=== PATIENT | female | born 2000 | race Caucasian/White ===

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

== ENCOUNTER 2018-04-11 11:10 | Emergency (ER) | payer OTHER ==
[2018-04-11 11:17] VITALS: TEMP 98.1
[2018-04-11 12:32] LABS: Amphetamine Screen,Urine Not Detected (NotDetected); Barbiturate Screen,Urine Not Detected (NotDetected); Benzodiazepines Screen,Urine Detected (NotDetected); Cocaine Screen,Urine Not Detected (NotDetected); Methadone Screen, Urine Not Detected (NotDetected); Opiate Screen,Urine Not Detected (NotDetected); Oxycodone Screen, Urine Not Detected (NotDetected); Phencyclidine Screen,Urine Not Detected (NotDetected); Tricyclic Antidepressant,Urine Not Detected (NotDetected); Urn Cannabinoid Scrn Detected (NotDetected)
--- NOTE | 2018-04-11 13:28 | ED ---
General Adult HPI - General Chief complaint: Psychiatric Symptoms Stated complaint: SUICIDAL Time Seen by Provider: 04/11/18 11:10 Source: patient, family, RN notes reviewed Mode of arrival: ambulatory Limitations: no limitations - History of Present Illness Initial comments: This is a 17-year-old female presents emergency Department stating that her depression and anxiety are getting the best of her lately. Patient states every day she thinks about how would be not to be around. Patient states she's not actively thinking of suicide but she does often think it would be nice not to be here any longer. Patient states she attempted suicide about 4 years ago but hasn't attempted since and has no current plan to attempt. Patient states she has not taken any medications for her anxiety or depression. Patient denies any physical complaints today. Patient states she does smoke marijuana but does not do any other illegal drugs and she only is a social drinker. Patient states she does not believe she is at this time either. Patient denies any headache patient denies numbness weakness. Patient was chest pain difficulty breathing or shortness of breath. Patient denies any recent fever chills or cough. Patient denies abdominal pain patient denies nausea vomiting diarrhea. - Related Data Home Medications Medication Instructions Recorded Confirmed No Known Home Medications 03/12/17 04/11/18 Allergies Allergy/AdvReac Type Severity Reaction Status Date / Time No Known Allergies Allergy Verified 04/11/18 11:48 Review of Systems ROS Statement: Those systems with pertinent positive or pertinent negative responses have been documented in the HPI. ROS Other: All systems not noted in ROS Statement are negative. Past Medical History Past Medical History: No Reported History Additional Past Medical History / Comment(s): LIVER ENZYMES ELEV. ON PO AB FOR ECOLI IN URINE. CHOLECYSTITIS. History of Any Multi-Drug Resistant Organisms: None Reported Past Surgical History: Adenoidectomy, Cholecystectomy, Tonsillectomy Past Anesthesia/Blood Transfusion Reactions: No Reported Reaction Past Psychological History: Anxiety, Depression Smoking Status: Current every day smoker Past Alcohol Use History: Rare Past Drug Use History: Marijuana - Past Family History Mother Family Medical History: No Reported History Father Family Medical History: Unable to Obtain General Exam - General Exam Comments Initial Comments: GENERAL: Patient is well-developed and well-nourished. Patient is nontoxic and well- hydrated and is in no acute distress. ENT: Neck is soft and supple. No significant lymphadenopathy is noted. Oropharynx is clear. Moist mucous membranes. Neck has full range of motion without eliciting any pain. EYES: The sclera were anicteric and conjunctiva were pink and moist. Extraocular movements were intact and pupils were equal round and reactive to light. Eyelids were unremarkable. PULMONARY: Unlabored respirations. Good breath sounds bilaterally. No audible rales rhonchi or wheezing was noted. CARDIOVASCULAR: There is a regular rate and rhythm without any murmurs gallops or rubs. ABDOMEN: Soft and nontender with normal bowel sounds. No palpable organomegaly was noted. There is no palpable pulsatile mass. SKIN: Skin is clear with no lesions or rashes and otherwise unremarkable. NEUROLOGIC: Patient is alert and oriented x3. Cranial nerves II through XII are grossly intact. Motor and sensory are also intact. Normal speech, volume and content. Symmetrical smile. MUSCULOSKELETAL: Normal extremities with adequate strength and full range of motion. PSYCHIATRIC: Patient appears to be depressed she is talking about how denies it would be not to be any longer however she is not actively suicidal. Limitations: no limitations Course Vital Signs 04/11/18 04/11/18 11:12 14:14 Temperature 98.1 F Pulse Rate 107 H 68 Respiratory 16 18 Rate Blood Pressure 113/66 111/52 O2 Sat by Pulse 100 99 Oximetry Medical Decision Making - Medical Decision Making Mom and the patient are both comfortable with the outpatient follow-up plan - Lab Data Lab Results 04/11/18 Range/Units 12:13 Urine Opiates Screen Not Detected (NotDetected) Ur Oxycodone Screen Not Detected (NotDetected) Urine Methadone Screen Not Detected (NotDetected) Ur Propoxyphene Screen Not Detected (NotDetected) Ur Barbiturates Screen Not Detected (NotDetected) U Tricyclic Antidepress Not Detected (NotDetected) Ur Phencyclidine Scrn Not Detected (NotDetected) Ur Amphetamines Screen Not Detected (NotDetected) U Methamphetamines Scrn Not Detected (NotDetected) U Benzodiazepines Scrn Detected H (NotDetected) Urine Cocaine Screen Not Detected (NotDetected) U Marijuana (THC) Screen Detected H (NotDetected) Disposition Clinical Impression: Depression Disposition: HOME SELF-CARE Condition: Good Instructions: Depression (ED) Additional Instructions: Patient should follow-up per EP assess directions Is patient prescribed a controlled substance at d/c from ED?: No Referrals: Nadja Goldberg MD [Primary Care Provider] - 1-2 days Time of Disposition: 13:28
[2018-04-11 14:15] VITALS: BP 111/52; PULSE 68; RESP 18
== END 2018-04-11 13:59 | disposition home or self-care (01) ==
LOC: EC 11:10
DX: F32.9 Major depressive disorder, single episode, unspecified (principal); F41.9 Anxiety disorder, unspecified; F17.200 Nicotine dependence, unspecified, uncomplicated
CPT/HCPCS: 80306; 82075; 99285

== ENCOUNTER 2018-08-14 13:42 | Emergency (ER) | payer OTHER ==
[2018-08-14] MEDS ORDERED: TOPICAL SKIN ADHESIVE 1 EACH AMP TOPICAL ONE (14:40)
[2018-08-14 14:45] LABS: Amphetamine Screen,Urine Not Detected (NotDetected); Barbiturate Screen,Urine Not Detected (NotDetected); Benzodiazepines Screen,Urine Detected (NotDetected); Cocaine Screen,Urine Not Detected (NotDetected); Methadone Screen, Urine Not Detected (NotDetected); Opiate Screen,Urine Not Detected (NotDetected); Oxycodone Screen, Urine Not Detected (NotDetected); Phencyclidine Screen,Urine Not Detected (NotDetected); Tricyclic Antidepressant,Urine Not Detected (NotDetected); Urn Cannabinoid Scrn Detected (NotDetected)
--- NOTE | 2018-08-14 14:45 | ED ---
General Adult HPI - General Source: patient, RN notes reviewed Mode of arrival: ambulatory Limitations: no limitations <Mukesh Ingram - Last Filed: 08/14/18 16:57> <Juancho Alba - Last Filed: 08/14/18 18:21> - General Chief complaint: Psychiatric Symptoms Stated complaint: lt arm lac Time Seen by Provider: 08/14/18 14:13 - History of Present Illness Initial comments: Patient is a 18-year-old female presenting to the emergency room today with a chief complaint of cutting to the left forearm. Patient does admit that she does with a razor blade just prior to arrival. She does admit to a history of cutting. She states this was not an attempt to commit suicide. She does admit that she has seen counselors in the past but is been several months since she seen her counselor as her counselor was sent to half-way. Patient denies any other complaints or symptoms. States tetanus is up-to-date. Patient denies any recent fever, chills, shortness of breath, chest pain, back pain, abdominal pain , nausea or vomiting, numbness or tingling, headaches or visual changes, or any other complaints. (Mukesh Ingram) - Related Data Home Medications Medication Instructions Recorded Confirmed No Known Home Medications 03/12/17 04/11/18 Allergies Allergy/AdvReac Type Severity Reaction Status Date / Time No Known Allergies Allergy Verified 08/14/18 14:07 Review of Systems ROS Other: All systems not noted in ROS Statement are negative. <Mukesh Ingram - Last Filed: 08/14/18 16:57> ROS Other: All systems not noted in ROS Statement are negative. <Juancho Alba - Last Filed: 08/14/18 18:21> ROS Statement: Those systems with pertinent positive or pertinent negative responses have been documented in the HPI. Past Medical History Past Medical History: No Reported History Additional Past Medical History / Comment(s): LIVER ENZYMES ELEV. ON PO AB FOR ECOLI IN URINE. CHOLECYSTITIS. History of Any Multi-Drug Resistant Organisms: None Reported Past Surgical History: Adenoidectomy, Cholecystectomy, Tonsillectomy Past Anesthesia/Blood Transfusion Reactions: No Reported Reaction Past Psychological History: Anxiety, Depression Smoking Status: Current every day smoker Past Alcohol Use History: Rare Past Drug Use History: Marijuana - Past Family History Mother Family Medical History: No Reported History Father Family Medical History: Unable to Obtain <Mukesh Ingram - Last Filed: 08/14/18 16:57> General Exam Limitations: no limitations <Mukesh Ingram - Last Filed: 08/14/18 16:57> <Juancho Alba - Last Filed: 08/14/18 18:21> - General Exam Comments Initial Comments: General: The patient is awake and alert, in no distress, and does not appear acutely ill. Eye: There is normal conjunctiva bilaterally. No signs of icterus. Ears, nose, mouth and throat: There are moist mucous membranes and no oral lesions. Neck: The neck is supple, there is no tenderness or JVD. Cardiovascular: There is a regular rate and rhythm. No murmur, rub or gallop is appreciated. Respiratory: Lungs are clear to auscultation, respirations are non-labored, breath sounds are equal. No wheezes, stridor, rales, or rhonchi. Musculoskeletal: Normal ROM, no tenderness. Radial pulses 2+. Neurological: A&O x 3. CN II-XII intact, There are no obvious motor or sensory deficits. Coordination appears grossly intact. Speech is normal. Skin: A total of 5 superficial laceration running parallel to the left forearm on the volar aspect. 2 lacerations are slightly deeper through the epidermis. 3 lacerations very superficial. There is no active bleeding. Psychiatric: Cooperative, appropriate mood & affect, normal judgment. (Mukesh Ingram) Vital Signs 08/14/18 14:04 Temperature 98.1 F Pulse Rate 98 Respiratory 20 Rate Blood Pressure 114/67 O2 Sat by Pulse 100 Oximetry Procedures <Mukesh Ingram - Last Filed: 08/14/18 16:57> <Juancho Alba - Last Filed: 08/14/18 18:21> - Procedures Initial comment: Patient is a total of 5 superficial lacerations to the left forearm. Patient's lacerations were cleaned here in the emergency room with saline. Steri-Strips were used on one of the lacerations to bring the edges closer together. Adhesive glue was then used to close and approximate lacerations. Patient tolerated the procedure well. (Mukesh Ingram) Medical Decision Making <Mukesh Ingram - Last Filed: 08/14/18 16:57> <Juancho Alba - Last Filed: 08/14/18 18:21> - Medical Decision Making Carissa from EPS evaluated the patient and determined she was safe to go home. Patient and mother are both in agreement with this (Juancho Alba) - Lab Data Lab Results 08/14/18 Range/Units 14:28 Urine Opiates Screen Not Detected (NotDetected) Ur Oxycodone Screen Not Detected (NotDetected) Urine Methadone Screen Not Detected (NotDetected) Ur Propoxyphene Screen Not Detected (NotDetected) Ur Barbiturates Screen Not Detected (NotDetected) U Tricyclic Antidepress Not Detected (NotDetected) Ur Phencyclidine Scrn Not Detected (NotDetected) Ur Amphetamines Screen Not Detected (NotDetected) U Methamphetamines Scrn Not Detected (NotDetected) U Benzodiazepines Scrn Detected H (NotDetected) Urine Cocaine Screen Not Detected (NotDetected) U Marijuana (THC) Screen Detected H (NotDetected) Disposition <Mukesh Ingram - Last Filed: 08/14/18 16:57> Is patient prescribed a controlled substance at d/c from ED?: No Time of Disposition: 18:20 <Juancho Alba - Last Filed: 08/14/18 18:21> Clinical Impression: Superficial laceration, Situational depression Disposition: HOME SELF-CARE Condition: Good Instructions: Depression (ED) Referrals: Nadja Goldberg MD [Primary Care Provider] - 1-2 days
[2018-08-14 19:07] VITALS: BP 124/68; PULSE 68; RESP 16; TEMP 97.5
--- NOTE | 2018-08-17 03:50 | CDI ---
Documentation Clarification OP Dear Dr. Parth Dawkins Please provide forearm laceration repair length. Thank you, Jannet Pacheco [place] [employer] If you have any questions, please contact Alterations Expert at [phone] [facility]
== END 2018-08-14 19:05 | disposition home or self-care (01) ==
LOC: EC 13:42
DX: S51.812A Laceration without foreign body of left forearm, initial encounter (principal); F43.21 Adjustment disorder with depressed mood; F17.200 Nicotine dependence, unspecified, uncomplicated; Z91.5 Personal history of self-harm; W26.8XXA Contact with other sharp object(s), not elsewhere classified, initial encounter
CPT/HCPCS: 12005; 80306; 82075; 99283

== ENCOUNTER 2019-06-04 16:17 | Inpatient (IN) | payer MEDICAID, OTHER ==
--- NOTE | 2019-06-04 17:14 | ED ---
Psych HPI - General Chief Complaint: Psychiatric Symptoms Stated Complaint: mental health/suicidal Time Seen by Provider: 06/04/19 16:45 Source: patient Mode of arrival: ambulatory - History of Present Illness Initial Comments: This 19-year-old white female presents with her mother with a complaint of depression. She states that she has had depression over the last 7 years. It has waxed and waned at times but has been severe recently. She states that she is feeling suicidal at this time. She has a history of self-mutilation but none recently. She is not on any medications for her depression stating that they have not worked well in the past. She does utilize marijuana, street Xanax abuse, and alcohol use versus abuse. She denies any current medical problems. She states that she did obtain significant relief with previous hospitalization at [facility] when she was 13 years old. She is essentially requesting psychiatric hospitalization at this time. No other complaints or modifying factors. - Related Data Home Medications Medication Instructions Recorded Confirmed No Known Home Medications 03/12/17 06/04/19 Allergies Allergy/AdvReac Type Severity Reaction Status Date / Time latex Allergy Unknown Verified 06/04/19 17:17 Latex, Natural Rubber Allergy Unknown Verified 06/04/19 17:17 Review of Systems ROS Statement: Those systems with pertinent positive or pertinent negative responses have been documented in the HPI. ROS Other: All systems not noted in ROS Statement are negative. Past Medical History Past Medical History: No Reported History Additional Past Medical History / Comment(s): LIVER ENZYMES ELEV. ON PO AB FOR ECOLI IN URINE. CHOLECYSTITIS. History of Any Multi-Drug Resistant Organisms: None Reported Past Surgical History: Adenoidectomy, Cholecystectomy, Tonsillectomy Past Anesthesia/Blood Transfusion Reactions: No Reported Reaction Past Psychological History: Anxiety, Depression Smoking Status: Current every day smoker Past Alcohol Use History: Rare Past Drug Use History: Marijuana - Past Family History Mother Family Medical History: No Reported History Father Family Medical History: Unable to Obtain General Exam - General Exam Comments Initial Comments: GENERAL: The patient is well nourished and well hydrated. VITAL SIGNS: Heart rate, blood pressure, respiratory rate reviewed as recorded in nurse's notes. EYES: Pupils are round and reactive. Extraocular movements are intact. No conjunctival / lid redness or swelling. ENT: No external evidence of injury, swelling, or ecchymosis. Airway is patent. Throat is clear. NECK: Nontender. No swelling or evidence of injury. No subcutaneous emphysema. Trachea is midline. No thyroid mass. HEART: Regular rate and rhythm. Good peripheral pulses. LUNGS/CHEST: Breath sounds clear and equal bilaterally. No rales, rhonchi, or wheezes. No ecchymosis, subcutaneous emphysema, or tenderness. ABDOMEN: Abdomen soft without tenderness. No palpable masses or organomegaly. No peritoneal signs. No abdominal wall swelling or ecchymosis. EXTREMITIES: No extremity tenderness. Normal muscle tone and function. No thoracolumbar tenderness. NEUROLOGIC: Sensation is grossly intact. Cranial nerve exam reveals face is symmetrical, tongue is midline, speech is clear. SKIN: No abrasions or ecchymosis is noted. No induration or masses noted. PSYCHIATRIC: Alert and oriented. Flat affect noted. Limitations: no limitations Course Vital Signs 06/04/19 16:37 Temperature 99.9 F H Pulse Rate 97 Respiratory 16 Rate Blood Pressure 101/54 O2 Sat by Pulse 97 Oximetry Medical Decision Making - Medical Decision Making The patient was seen and examined. All diagnostics were reviewed. The breath alcohol test is negative. It is felt as though she is medically cleared for further psychiatric evaluation. The case is discussed with the psychiatric team and they recommend inpatient psychiatric admission. It is felt as though this would be best for the patient. - Lab Data Lab Results 06/04/19 Range/Units 17:51 Urine Opiates Screen Not Detected (NotDetected) Ur Oxycodone Screen Not Detected (NotDetected) Urine Methadone Screen Not Detected (NotDetected) Ur Propoxyphene Screen Not Detected (NotDetected) Ur Barbiturates Screen Not Detected (NotDetected) U Tricyclic Antidepress Not Detected (NotDetected) Ur Phencyclidine Scrn Not Detected (NotDetected) Ur Amphetamines Screen Not Detected (NotDetected) U Methamphetamines Scrn Not Detected (NotDetected) U Benzodiazepines Scrn Detected H (NotDetected) Urine Cocaine Screen Not Detected (NotDetected) U Marijuana (THC) Screen Detected H (NotDetected) Disposition Clinical Impression: Depression, Suicidal ideation Disposition: ADMITTED IP TO THIS HOSP Condition: Fair Is patient prescribed a controlled substance at d/c from ED?: No Time of Disposition: 20:42 Decision Date: 06/04/19 Decision Time: 20:42
[2019-06-04 18:08] LABS: Amphetamine Screen,Urine Not Detected (NotDetected); Barbiturate Screen,Urine Not Detected (NotDetected); Benzodiazepines Screen,Urine Detected (NotDetected); Cocaine Screen,Urine Not Detected (NotDetected); Methadone Screen, Urine Not Detected (NotDetected); Opiate Screen,Urine Not Detected (NotDetected); Oxycodone Screen, Urine Not Detected (NotDetected); Phencyclidine Screen,Urine Not Detected (NotDetected); Tricyclic Antidepressant,Urine Not Detected (NotDetected); Urn Cannabinoid Scrn Detected (NotDetected)
[2019-06-04] MEDS ORDERED: LORazepam 1 MG TAB PO PRN (20:40)
[2019-06-04] MEDS ORDERED: ACETAMINOPHEN TAB 325 MG TAB PO PRN (20:40)
[2019-06-04] MEDS ORDERED: ZIPRASIDONE 20 MG VIAL IM PRN (20:40)
[2019-06-04] MEDS ORDERED: MAG HYDROX/AL HYDROX/SIMETH 30 ML CUP PO PRN (20:40)
[2019-06-04] MEDS ORDERED: MAGNESIUM HYDROXIDE 2,400 MG/10 ML CUP PO PRN (20:40)
[2019-06-04] MEDS ORDERED: LORazepam 2 MG/ML INJ IM PRN (20:44)
[2019-06-04 22:33] VITALS: BMI 17.7
[2019-06-05] MEDS: NICOTINE 14MG/24HR PATCH TRANSDERM SCH ×2 (00:31→09:30)
[2019-06-05 09:42] LABS: Basophils % (A) 0 %; Eosinophils # (A) 0.1 k/uL (0-0.7); Eosinophils % (A) 1 %; HCT 43.3 % (34.0-46.0); HGB 14.4 gm/dL (11.4-16.0); Lymphocytes # (A) 2.7 k/uL (1.0-4.8); Lymphocytes % (A) 40 %; MCH 30.8 pg (25.0-35.0); MCHC 33.2 g/dL (31.0-37.0); MCV 92.8 fL (80.0-100.0); Mean Platelet Volume 7.5; Monocytes # (A) 0.3 k/uL (0-1.0); Monocytes % (A) 4 %; Neutrophils # (A) 3.5 k/uL (1.3-7.7); Neutrophils % (A) 51 %; Platelet Count 241 k/uL (150-450); RBC 4.66 m/uL (3.80-5.40); RDW 12.8 % (11.5-15.5); WBC 6.8 k/uL (3.8-10.6)
[2019-06-05 09:56] LABS: ALT 11 U/L (9-52); AST 21 U/L (14-36); African American GFR (CKD) >90 (>60 ml/min/1.73 sqM); Albumin 4.6 g/dL (3.5-5.0); Alkaline Phosphatase 52 U/L (38-126); Anion Gap 10 mmol/L; Blood Urea Nitrogen 8 mg/dL (7-17); Carbon Dioxide 26 mmol/L (22-30); Chloride 105 mmol/L (98-107); Cholesterol 119 mg/dL (<200); Glucose 94 mg/dL (74-99); HDL Cholesterol 44 mg/dL (40-60); LDL Cholesterol,Calculated 58 mg/dL (0-99); Potassium 3.9 mmol/L (3.5-5.1); Sodium 141 mmol/L (137-145); Total Bilirubin 0.9 mg/dL (0.2-1.3); Total Protein 7.4 g/dL (6.3-8.2); Triglycerides 86 mg/dL (<150)
[2019-06-05] MEDS: SERTRALINE 50 MG TAB PO SCH (12:25)
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
[2019-06-05] MEDS: hydrOXYzine PAMOATE 25 MG CAP PO PRN (15:14)
[2019-06-05 18:51] LABS: Hemoglobin A1C 4.7 % (4.0-6.0)
[2019-06-05] MEDS: traZODone HCL 50 MG TAB PO SCH (20:35)
[2019-06-06] MEDS: SERTRALINE 50 MG TAB PO SCH (09:26)
[2019-06-06] MEDS: NICOTINE 14MG/24HR PATCH TRANSDERM SCH (09:26)
--- NOTE | 2019-06-06 09:56 | P.MDCNMH ---
History of Present Illness H&P Date: 06/06/19 Chief Complaint: Depression Patient is a 25-year-old female with a known history of depression for the past 7 years and has not been taking any medications recently was brought to the hospital by her mother due to complaints of depression and suicidal thoughts. Patient has been having depressive symptoms on and off. Was on Xanax previously. Currently patient has not been taking any medications. Otherwise patient is using marijuana and has been smoking cigarettes everyday. Patient had previous hospitalization at [facility] when she was 13 years old. Patient was admitted to the hospital due to suicidal thoughts. Currently patient denied any complaints of chest pain or shortness of breath. No nausea vomiting or abdominal pain. No headache or dizziness or lightheadedness. No fever no chills. No recent illnesses. No sick contacts. Review of Systems Constitutional: Patient denies any fever or chills . No generalized weakness or weight loss. Abdomen: Patient denied nausea vomiting and diarrhea and abdominal pain. Cardiovascular: Patient denies any chest pain or short of breath no palpitations. Respiratory: patient denied any cough is from production. No shortness of breath Neurologic: Patient denied any numbness or tingling headache. Musculoskeletal: Patient denies any complaints of joint swelling or deformity. Skin: Negative Psychiatric: Depression Endocrine: No heat or cold intolerance. No recent weight gain. Genitourinary: No dysuria or hematuria. All other 14 point ROS negative except the above Past Medical History Past Medical History: No Reported History Additional Past Medical History / Comment(s): LIVER ENZYMES ELEV. ON PO AB FOR ECOLI IN URINE. CHOLECYSTITIS. History of Any Multi-Drug Resistant Organisms: None Reported Past Surgical History: Adenoidectomy, Cholecystectomy, Tonsillectomy Past Anesthesia/Blood Transfusion Reactions: No Reported Reaction Past Psychological History: Anxiety, Depression Smoking Status: Current every day smoker Past Alcohol Use History: Rare Additional Past Alcohol Use History / Comment(s): SMOKED SINCE AGE 13, <1/2 PPD Past Drug Use History: Marijuana - Past Family History Mother Family Medical History: No Reported History Father History Unknown: Yes Family Medical History: Unable to Obtain Medications and Allergies Home Medications Medication Instructions Recorded Confirmed Type No Known Home Medications 03/12/17 06/04/19 History Allergies Allergy/AdvReac Type Severity Reaction Status Date / Time latex Allergy Unknown Verified 06/04/19 17:17 Latex, Natural Rubber Allergy Unknown Verified 06/04/19 17:17 Physical Exam Vitals: Vital Signs Temp Pulse Resp BP 06/06/19 06:18 98.1 F 71 16 114/70 PHYSICAL EXAMINATION: Patient is lying in the bed comfortably, no acute distress, awake alert and oriented.. HEENT: Normocephalic. Neck is supple. Pupils reactive. Nostrils clear. Oral cavity is moist. Ears reveal no drainage. Neck reveals no JVD, carotid bruits, or thyromegaly. CHEST EXAMINATION: Trachea is central. Symmetrical expansion. Lung joy clear to auscultation and percussion. CARDIAC: Normal S1, S2 with no gallops. No murmurs ABDOMEN: Soft. Bowel sounds normal. No organomegaly. No abdominal bruits. Extremities: reveal no edema. No clubbing or cyanosis Neurologically awake, alert, oriented x3 with well-coordinated movements. No focal deficits noted Skin: No rash or skin lesions. Psychiatric: Coperative. Nonsuicidal Musculoskeletal: No joint swelling or deformity. Normal range of motion. Cranial Nerve Examination - Cranial Nerves Cranial Nerve I- Olfactory: Intact Cranial Nerve II- Optic: Intact Cranial Nerve III- Oculomotor: Intact Cranial Nerve IV- Trochlear: Intact Cranial Nerve V- Trigeminal: Intact Cranial Nerve - Abducens: Intact Cranial Nerve VII- Facial: Intact Cranial Nerve VIII- Auditory: Intact Cranial Nerve IX- Glossopharyngeal: Intact Cranial Nerve X- Vagus: Intact Cranial Nerve XI- Accessory: Intact Cranial Nerve XII- Hypoglossal: Intact Results CBC & Chem 7: 06/05/19 08:57 06/05/19 08:57 Assessment and Plan Assessment: Depression with suicidal thoughts. history of depression currently not on any medications.. History of psychiatric admission Ongoing nicotine addiction Marijuana use Street Xanax use UDS is positive for marijuana and benzodiazepines DVT prophylaxis with early ambulation plan: patient will continue on current psychiatric management. Monitor for any Xanax withdrawal symptoms. Otherwise continue the current management. Smoking cessation and marijuana use has been counseled extensively. Further recommendations based on the clinical course. Thank you for your consult. Time with Patient: Greater than 30
--- NOTE | 2019-06-06 10:40 | P.PN ---
Progress Note - Text Progress Note Date: 06/06/19 Interval History: Patient was seen this morning as she was talking with another patient was agre eable to be seen by health underwriter in the office. Patient states that she had better sleep last night however claims that she did sleep through breakfast and felt that the medication did help put her to sleep last night well. Patient was unsure about whether she felt the medication was too strong or not and wanted to continue on the same dose for tonight. Patient states that she feels her mood is gradually improving and states that she did have some anxiety yesterday and today and talk Vistaril which he claims helped her with it. Patient states that she spoke with her friends over the phone and also her mother and she feels that they are being more supportive at this time. She spoke about missing her child at home. Patient claims that she is going to groups and finding them helpful. She admits to a fair appetite and fair energy. At this time patient denies any suicidal or homical ideations, intent or plan. Patient denies any auditory, visual hallucinations and denies any paranoia or delusions. Patient denies any side effects from the medications and has been compliant with meds. Mental Status Exam: General Appearance: Patient appears to be stated age is alert, and cooperative. Continues to have poor grooming and poor hygiene. Behavior: Patient is calmly seated without any agitated behavior. Speech: Patient's speech is fluent and nonpressured. Soft tone Mood/Affect: Patient reports their mood is depressed, improving mildly, affect is congruent and constricted. Suicidality/Homicidality: Patient denies having any suicidal or homicidal ideation intent or plan. Perceptions: Patient denies any auditory or visual hallucinations. Though content/process: There is no evidence of any delusional thought content and thought process is linear and goal-directed. Memory and concentration: AOX3, grossly intact for the purposes of this session. Judgment and insight: Improving mildly Assessment Major depressive disorder, recurrent, severe Anxiety disorder unspecified Cannabis use disorder Benzodiazepine abuse Alcohol use disorder, mild Plan: -Patient continues to meet criteria for inpatient psychiatric admission for symptom stabilization and safety. Patient has signed adult voluntary form and medication consent and was placed in patient's chart. -Medications: Continue Zoloft 50 mg daily for mood/anxiety. Continue with trazodone 50 mg daily at bedtime for insomnia/mood. Continue with Vistaril 25 mg every 6 hours when necessary for anxiety. -NRT - [nicotine patch] - on board for discharge planning. Patient will be discharged home likely follow up with [facility]. Patient likely discharge in 1-2 days.
[2019-06-06] MEDS: hydrOXYzine PAMOATE 25 MG CAP PO PRN ×2 (12:16→20:13)
[2019-06-06] MEDS: traZODone HCL 50 MG TAB PO SCH (20:13)
[2019-06-07] MEDS: NICOTINE 14MG/24HR PATCH TRANSDERM SCH (07:58)
[2019-06-07] MEDS: SERTRALINE 50 MG TAB PO SCH (07:58)
--- NOTE | 2019-06-07 13:34 | P.PN ---
Progress Note - Text Progress Note Date: 06/07/19 Interval History: Patient was seen this this afternoon speaking with another patient was agreeable to be seen by sba underwriter in the office. Patient states that she had better sleep last night and was able to make it for breakfast this morning. She states that she did take Vistaril along with her trazodone as she was visiting with her mother and her mother made her anxious. Patient states that she feels her mood is gradually improving and states that her anxiety is improving as well gradually. Patient was more future oriented today and spoke about wanting to get and apply for an apartment to live with her and her child when she gets discharged. He states that she is being more optimistic and is not having thoughts of suicide at this time. Patient claims that she is going to groups and finding them helpful and his continued work on her coping skills. She admits to a fair appetite and fair energy. At this time patient denies any suicidal or homical ideations, intent or plan. Patient denies any auditory, visual hallucinations and denies any paranoia or delusions. Patient denies any side effects from the medications and has been compliant with meds. Mental Status Exam: General Appearance: Patient appears to be stated age is alert, and cooperative. Improving grooming and hygiene. Behavior: Patient is calmly seated without any agitated behavior. Speech: Patient's speech is fluent and nonpressured. Mood/Affect: Patient reports their mood is improving, affect is congruent and constricted. Suicidality/Homicidality: Patient denies having any suicidal or homicidal ideation intent or plan. Perceptions: Patient denies any auditory or visual hallucinations. Though content/process: There is no evidence of any delusional thought content and thought process is linear and goal-directed. More future oriented. Memory and concentration: AOX3, grossly intact for the purposes of this session. Judgment and insight: Improving mildly Assessment Major depressive disorder, recurrent, severe Anxiety disorder unspecified Cannabis use disorder Benzodiazepine abuse Alcohol use disorder, mild Plan: -Patient continues to meet criteria for inpatient psychiatric admission for symptom stabilization and safety. Patient has signed adult voluntary form and medication consent and was placed in patient's chart. -Medications: Continue Zoloft 50 mg daily for mood/anxiety. Continue with trazodone 50 mg daily at bedtime for insomnia/mood. Continue with Vistaril 25 mg every 6 hours when necessary for anxiety. -NRT - nicotine patch - on board for discharge planning. Patient will be discharged home likely follow up with [facility]. Patient likely discharge tomorrow.
[2019-06-07] MEDS: hydrOXYzine PAMOATE 25 MG CAP PO PRN ×2 (14:53→21:00)
[2019-06-07] MEDS: traZODone HCL 50 MG TAB PO SCH (21:00)
[2019-06-08 07:06] VITALS: BP 98/51; PULSE 65; RESP 12; TEMP 98
[2019-06-08] MEDS: NICOTINE 14MG/24HR PATCH TRANSDERM SCH (08:45)
[2019-06-08] MEDS: SERTRALINE 50 MG TAB PO SCH (08:46)
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
[2019-06-08] MEDS: hydrOXYzine PAMOATE 25 MG CAP PO PRN (10:50)
== END 2019-06-08 12:10 | disposition home or self-care (01) | DRG 885 ==
LOC: EC 16:17 → 3MHU 20:31
PROVIDERS: ADMIT Psychiatry & Neurology Psychiatry; ATTEND Psychiatry & Neurology Psychiatry
DX: F33.2 Major depressive disorder, recurrent severe without psychotic features (principal); R45.851 Suicidal ideations; F41.9 Anxiety disorder, unspecified; F12.10 Cannabis abuse, uncomplicated; F13.10 Sedative, hypnotic or anxiolytic abuse, uncomplicated; G47.00 Insomnia, unspecified; F10.10 Alcohol abuse, uncomplicated; F17.210 Nicotine dependence, cigarettes, uncomplicated; Z71.6 Tobacco abuse counseling; Z91.5 Personal history of self-harm; Z90.49 Acquired absence of other specified parts of digestive tract; Z98.890 Other specified postprocedural states; Z91.411 Personal history of adult psychological abuse; Z91.040 Latex allergy status; Z81.8 Family history of other mental and behavioral disorders
CPT/HCPCS: 80053; 80061; 80306; 82075; 83036; 84443; 85025; 99285

== ENCOUNTER 2019-08-26 12:06 | Emergency (ER) | payer OTHER ==
[2019-08-26 12:13] VITALS: BP 120/82; PULSE 85; RESP 18; TEMP 98.3
[2019-08-26] MEDS ORDERED: ONDANSETRON 4 MG/2 ML VIAL IVP STA (12:44)
[2019-08-26] MEDS ORDERED: KETOROLAC 30 MG/ML 1 ML VIAL IVP STA (12:44)
[2019-08-26] MEDS ORDERED: SODIUM CHLORIDE 0.9% 1,000 ML IV STA ×2 (12:44)
[2019-08-26 12:58] LABS: Basophils % (A) 0 %; Eosinophils % (A) 1 %; HCT 41.4 % (34.0-46.0); HGB 14.2 gm/dL (11.4-16.0); Lymphocytes # (A) 1.1 k/uL (1.0-4.8); Lymphocytes % (A) 17 %; MCH 31.6 pg (25.0-35.0); MCHC 34.4 g/dL (31.0-37.0); MCV 91.8 fL (80.0-100.0); Mean Platelet Volume 8.8; Monocytes # (A) 0.3 k/uL (0-1.0); Monocytes % (A) 4 %; Neutrophils # (A) 5.2 k/uL (1.3-7.7); Neutrophils % (A) 77 %; Platelet Count 227 k/uL (150-450); RBC 4.51 m/uL (3.80-5.40); WBC 6.7 k/uL (3.8-10.6)
[2019-08-26 13:12] LABS: ALT 16 U/L (4-34); AST 31 U/L (14-36); African American GFR (CKD) >90 (>60 ml/min/1.73 sqM); Albumin 4.2 g/dL (3.5-5.0); Alkaline Phosphatase 66 U/L (38-126); Amylase 59 U/L (30-110); Anion Gap 8 mmol/L; Blood Urea Nitrogen 10 mg/dL (7-17); Calcium 9.2 mg/dL (8.4-10.2); Carbon Dioxide 26 mmol/L (22-30); Chloride 104 mmol/L (98-107); Glucose 79 mg/dL (74-99); Non-African American GFR(CKD) >90 (>60 ml/min/1.73 sqM); Sodium 138 mmol/L (137-145); Total Bilirubin 0.8 mg/dL (0.2-1.3); Total Protein 6.6 g/dL (6.3-8.2)
--- NOTE | 2019-08-26 13:22 | ED ---
Female Urogenital HPI - General Chief complaint: Urogenital Stated complaint: Kidney pain Time Seen by Provider: 08/26/19 12:20 Source: patient, RN notes reviewed, old records reviewed Mode of arrival: ambulatory Limitations: no limitations - History of Present Illness Initial comments: Patient is a 19-year-old female who presents emergency department today for evaluation for left sided flank pain 1 week. Patient reports she's had previous kidney infections and believes this is similar to her last complaints of pain. Patient states she's had no nausea or vomiting. She denies any specific fevers or chills. She does report decreased urine output. She denies any chance of at this time. - Related Data Previous Rx's Medication Instructions Recorded Nicotine 14Mg/24Hr Patch [Habitrol] 1 patch TRANSDERM DAILY 14 Days 06/08/19 patch Sertraline [Zoloft] 50 mg PO DAILY 28 Days tab 06/08/19 hydrOXYzine PAMOATE [Vistaril] 25 mg PO DAILY PRN 28 Days cap 06/08/19 traZODone HCL [Desyrel] 50 mg PO HS 28 Days tab 06/08/19 Cephalexin [Keflex] 500 mg PO Q6H #28 cap 08/26/19 Ibuprofen [Motrin] 600 mg PO Q8HR PRN #20 tab 08/26/19 Allergies Allergy/AdvReac Type Severity Reaction Status Date / Time latex Allergy Unknown Verified 08/26/19 12:11 Latex, Natural Rubber Allergy Unknown Verified 08/26/19 12:11 Review of Systems ROS Statement: Those systems with pertinent positive or pertinent negative responses have been documented in the HPI. ROS Other: All systems not noted in ROS Statement are negative. Past Medical History Past Medical History: No Reported History Additional Past Medical History / Comment(s): LIVER ENZYMES ELEV. ON PO AB FOR ECOLI IN URINE. CHOLECYSTITIS. History of Any Multi-Drug Resistant Organisms: None Reported Past Surgical History: Adenoidectomy, Cholecystectomy, Tonsillectomy Past Anesthesia/Blood Transfusion Reactions: No Reported Reaction Past Psychological History: Anxiety, Depression Smoking Status: Current every day smoker Past Alcohol Use History: Occasional Past Drug Use History: Marijuana - Past Family History Mother Family Medical History: No Reported History Father History Unknown: Yes Family Medical History: Unable to Obtain General Exam - General Exam Comments Initial Comments: 19-year-old female. Alert and oriented 3. Limitations: no limitations General appearance: alert, in no apparent distress Head exam: Present: atraumatic, normocephalic, normal inspection Eye exam: Present: normal appearance, PERRL, EOMI. Absent: scleral icterus, conjunctival injection, periorbital swelling ENT exam: Present: normal exam Neck exam: Present: normal inspection. Absent: tenderness, meningismus, lymphadenopathy Respiratory exam: Present: normal lung sounds bilaterally. Absent: respiratory distress, wheezes, rales, rhonchi, stridor Cardiovascular Exam: Present: regular rate, normal rhythm, normal heart sounds. Absent: systolic murmur, diastolic murmur, rubs, gallop, clicks GI/Abdominal exam: Present: soft, normal bowel sounds. Absent: distended, tenderness, guarding, rebound, rigid Extremities exam: Present: normal inspection, full ROM, normal capillary refill. Absent: tenderness, pedal edema, joint swelling, calf tenderness Back exam: Present: normal inspection, CVA tenderness (L) Neurological exam: Present: alert, oriented X3, CN II-XII intact Psychiatric exam: Present: normal affect, normal mood Skin exam: Present: warm, dry, intact, normal color. Absent: rash Course Vital Signs 08/26/19 12:12 Temperature 98.3 F Pulse Rate 85 Respiratory 18 Rate Blood Pressure 120/82 O2 Sat by Pulse 98 Oximetry Medical Decision Making - Medical Decision Making 19-year-old female presents today for evaluation for concerns for kidney infection. She does complain some flank pain. Worse bilaterally. Patient had some minimal left CVA tenderness. Vital signs are stable. Blood work was reviewed and unremarkable. No significant leukocytosis. Urine sample does appear to be somewhat contaminated. Significant amount of epithelial cells were noted. She does have a few white blood cells in her urine. Urine culture will be completed. Patient this time pain seems to be muscles else related. Discussed the Patient can be taking anti-inflammatory medication. In the short interim until urine cultures completed will discuss using Keflex for antibiotic coverage at this time. Patient is agreeable treatment plan will comply. Return parameters were discussed. - Lab Data Result diagrams: 08/26/19 12:24 08/26/19 12:24 Lab Results 08/26/19 08/26/19 08/26/19 Range/Units 12:24 12:24 13:20 WBC 6.7 (3.8-10.6) k/uL RBC 4.51 (3.80-5.40) m/uL Hgb 14.2 (11.4-16.0) gm/dL Hct 41.4 (34.0-46.0) % MCV 91.8 (80.0-100.0) fL MCH 31.6 (25.0-35.0) pg MCHC 34.4 (31.0-37.0) g/dL RDW 13.0 (11.5-15.5) % Plt Count 227 (150-450) k/uL Neutrophils % 77 % Lymphocytes % 17 % Monocytes % 4 % Eosinophils % 1 % Basophils % 0 % Neutrophils # 5.2 (1.3-7.7) k/uL Lymphocytes # 1.1 (1.0-4.8) k/uL Monocytes # 0.3 (0-1.0) k/uL Eosinophils # 0.0 (0-0.7) k/uL Basophils # 0.0 (0-0.2) k/uL Sodium 138 (137-145) mmol/L Potassium 4.0 (3.5-5.1) mmol/L Chloride 104 (98-107) mmol/L Carbon Dioxide 26 (22-30) mmol/L Anion Gap 8 mmol/L BUN 10 (7-17) mg/dL Creatinine 0.64 (0.52-1.04) mg/dL Est GFR (CKD-EPI)AfAm >90 (>60 ml/min/1.73 sqM) Est GFR (CKD-EPI)NonAf >90 (>60 ml/min/1.73 sqM) Glucose 79 (74-99) mg/dL Calcium 9.2 (8.4-10.2) mg/dL Total Bilirubin 0.8 (0.2-1.3) mg/dL AST 31 (14-36) U/L ALT 16 (4-34) U/L Alkaline Phosphatase 66 (38-126) U/L Total Protein 6.6 (6.3-8.2) g/dL Albumin 4.2 (3.5-5.0) g/dL Amylase 59 (30-110) U/L Lipase 72 (23-300) U/L Urine Color Urine Appearance (Clear) Urine pH (5.0-8.0) Ur Specific Sayner (1.001-1.035) Urine Protein (Negative) Urine Glucose (UA) (Negative) Urine Ketones (Negative) Urine Blood (Negative) Urine Nitrite (Negative) Urine Bilirubin (Negative) Urine Urobilinogen (<2.0) mg/dL Ur Leukocyte Esterase (Negative) Urine RBC (0-5) /hpf Urine WBC (0-5) /hpf Ur Squamous Epith Cells (0-4) /hpf Amorphous Sediment (None) /hpf Urine Bacteria (None) /hpf Urine Mucus (None) /hpf Urine HCG, Qual Not Detected (Not Detectd) 08/26/19 Range/Units 13:20 WBC (3.8-10.6) k/uL RBC (3.80-5.40) m/uL Hgb (11.4-16.0) gm/dL Hct (34.0-46.0) % MCV (80.0-100.0) fL MCH (25.0-35.0) pg MCHC (31.0-37.0) g/dL RDW (11.5-15.5) % Plt Count (150-450) k/uL Neutrophils % % Lymphocytes % % Monocytes % % Eosinophils % % Basophils % % Neutrophils # (1.3-7.7) k/uL Lymphocytes # (1.0-4.8) k/uL Monocytes # (0-1.0) k/uL Eosinophils # (0-0.7) k/uL Basophils # (0-0.2) k/uL Sodium (137-145) mmol/L Potassium (3.5-5.1) mmol/L Chloride (98-107) mmol/L Carbon Dioxide (22-30) mmol/L Anion Gap mmol/L BUN (7-17) mg/dL Creatinine (0.52-1.04) mg/dL Est GFR (CKD-EPI)AfAm (>60 ml/min/1.73 sqM) Est GFR (CKD-EPI)NonAf (>60 ml/min/1.73 sqM) Glucose (74-99) mg/dL Calcium (8.4-10.2) mg/dL Total Bilirubin (0.2-1.3) mg/dL AST (14-36) U/L ALT (4-34) U/L Alkaline Phosphatase (38-126) U/L Total Protein (6.3-8.2) g/dL Albumin (3.5-5.0) g/dL Amylase (30-110) U/L Lipase (23-300) U/L Urine Color Yellow Urine Appearance Turbid H (Clear) Urine pH 8.5 H (5.0-8.0) Ur Specific Sayner 1.027 (1.001-1.035) Urine Protein 1+ H (Negative) Urine Glucose (UA) Negative (Negative) Urine Ketones Negative (Negative) Urine Blood Negative (Negative) Urine Nitrite Negative (Negative) Urine Bilirubin Negative (Negative) Urine Urobilinogen 2.0 (<2.0) mg/dL Ur Leukocyte Esterase Trace H (Negative) Urine RBC 3 (0-5) /hpf Urine WBC 7 H (0-5) /hpf Ur Squamous Epith Cells 28 H (0-4) /hpf Amorphous Sediment Moderate H (None) /hpf Urine Bacteria Occasional H (None) /hpf Urine Mucus Many H (None) /hpf Urine HCG, Qual (Not Detectd) - Radiology Data Radiology results: report reviewed K Patient is nonacute abdomen. Disposition Clinical Impression: Flank pain, UTI (urinary tract infection) Disposition: HOME SELF-CARE Condition: Good Instructions (If sedation given, give patient instructions): Urinary Tract Infection in Women (ED) Additional Instructions: Please use medication as discussed. Please follow up with family doctor if symptoms have not improved over the next two days. Please return to the emergency room if your symptoms increase or worsen or for any other concerns. Prescriptions: Cephalexin [Keflex] 500 mg PO Q6H #28 cap Ibuprofen [Motrin] 600 mg PO Q8HR PRN #20 tab PRN Reason: Pain Is patient prescribed a controlled substance at d/c from ED?: No Referrals: Nadja Goldberg MD [Primary Care Provider] - 1-2 days Time of Disposition: 14:32
[2019-08-26 13:54] LABS: Amorphous Sediment,Urine Moderate /hpf; Appearance,Urine Turbid (Clear); Bacteria,Urine Occasional /hpf; Bilirubin,Urine Negative (Negative); Blood,Urine Negative (Negative); Color,Urine Yellow; Glucose,Urine (UA) Negative (Negative); Ketones,Urine Negative (Negative); Leukocyte Esterase,Urine Trace (Negative); Mucus,Urine Many /hpf; Nitrite,Urine Negative (Negative); PH, Urine 8.5 (5.0-8.0); Protein,Urine 1+ (Negative); RBC,Urine 3 /hpf (0-5); Specific Gravity,Urine 1.027 (1.001-1.035); Squamous Epithelial Cell,Urine 28 /hpf (0-4); WBC,Urine 7 /hpf (0-5)
--- NOTE | 2019-08-26 14:23 | XR ---
EXAMINATION TYPE: XR KUB DATE OF EXAM: 08/26/2019 COMPARISON: NONE HISTORY: Abdominal pain TECHNIQUE: 2 views upright. FINDINGS: Bowel gas pattern is normal. There is no sign of intestinal obstruction or pneumoperitoneum . Fecal pattern is normal. Lung bases are clear. There are no pathologic calcifications. IMPRESSION: Nonacute abdomen.
== END 2019-08-26 15:38 | disposition home or self-care (01) ==
LOC: EC 12:06
DX: N39.0 Urinary tract infection, site not specified (principal); F17.200 Nicotine dependence, unspecified, uncomplicated; Z91.040 Latex allergy status; Z90.49 Acquired absence of other specified parts of digestive tract
CPT/HCPCS: 36415; 80053; 82150; 83690; 85025; 81001; 81025; 87086; 74018; 99284; 96374; 96375; 96361 ×2; J2405; J1885

== ENCOUNTER 2020-03-09 22:04 | Emergency (ER) | payer OTHER ==
[2020-03-09] MEDS ORDERED: LIDOCAINE 1% INJ 10MG/ML (20 ML MDV) SQ ONE (22:30)
--- NOTE | 2020-03-10 01:05 | ED ---
Wound/Laceration HPI - General Source: patient, family Mode of arrival: ambulatory Limitations: no limitations <Tim Casper - Last Filed: 03/10/20 01:23> <Wilfredo Daugherty - Last Filed: 03/10/20 01:46> - General Chief Complaint: Wound/Laceration Stated Complaint: L Arm Injury, Self Harm Time Seen by Provider: 03/09/20 22:26 - History of Present Illness Initial Comments: Patient is a 19-year-old female presenting to the emergency department with a chief complaint of laceration. Patient states she was cutting herself with a razor which she does occasionally. She states she did not mean to cut herself as much as she did. Patient is emotional on evaluation. Patient states she does have history of self-harm but it has never been to this extent. Patient denies any homicidal, suicidal thoughts or ideations. States she has full sensation in the fingers and is able to move them. States the laceration is located on the anterior aspect of the left forearm. States her tetanus is up-to-date. (Tim Casper) - Related Data Previous Rx's Medication Instructions Recorded Nicotine 14Mg/24Hr Patch [Habitrol] 1 patch TRANSDERM DAILY 14 Days 06/08/19 patch Sertraline [Zoloft] 50 mg PO DAILY 28 Days tab 06/08/19 hydrOXYzine pamoate [Vistaril] 25 mg PO DAILY PRN 28 Days cap 06/08/19 traZODone HCL [Desyrel] 50 mg PO HS 28 Days tab 06/08/19 Cephalexin [Keflex] 500 mg PO Q6H #28 cap 08/26/19 Ibuprofen [Motrin] 600 mg PO Q8HR PRN #20 tab 08/26/19 Allergies Allergy/AdvReac Type Severity Reaction Status Date / Time latex Allergy Unknown Verified 03/09/20 22:14 Latex, Natural Rubber Allergy Unknown Verified 03/09/20 22:14 Review of Systems ROS Other: All systems not noted in ROS Statement are negative. <Tim Casper - Last Filed: 03/10/20 01:23> ROS Other: All systems not noted in ROS Statement are negative. <Wilfredo Daugherty - Last Filed: 03/10/20 01:46> ROS Statement: Those systems with pertinent positive or pertinent negative responses have been documented in the HPI. Past Medical History Past Medical History: No Reported History Additional Past Medical History / Comment(s): LIVER ENZYMES ELEV. ON PO AB FOR ECOLI IN URINE. CHOLECYSTITIS. History of Any Multi-Drug Resistant Organisms: None Reported Past Surgical History: Adenoidectomy, Cholecystectomy, Tonsillectomy Past Anesthesia/Blood Transfusion Reactions: No Reported Reaction Past Psychological History: Anxiety, Depression Past Alcohol Use History: Occasional Past Drug Use History: Marijuana - Past Family History Mother Family Medical History: No Reported History Father History Unknown: Yes Family Medical History: Unable to Obtain <Tim Casper - Last Filed: 03/10/20 01:23> General Exam Limitations: no limitations General appearance: alert, in no apparent distress Head exam: Present: atraumatic, normocephalic, normal inspection Eye exam: Present: normal appearance, PERRL, EOMI Pupils: Present: normal accommodation ENT exam: Present: normal exam, normal oropharynx, mucous membranes moist, TM's normal bilaterally, normal external ear exam Neck exam: Present: normal inspection, full ROM. Absent: tenderness Respiratory exam: Present: normal lung sounds bilaterally. Absent: respiratory distress, wheezes Cardiovascular Exam: Present: regular rate, normal rhythm, normal heart sounds Extremities exam: Present: full ROM, tenderness (Minimal tenderness at the laceration site.), normal capillary refill (Less than 3 second capillary refill.), other (+2 ulnar and radial pulses bilaterally.). Absent: normal inspection (Approximately 15 cm laceration on the anterior aspect of the left forearm. Fascia of the muscle group is visible but not lacerated or injured.), pedal edema, joint swelling, calf tenderness Back exam: Present: normal inspection, full ROM. Absent: tenderness Neurological exam: Present: alert, oriented X3, normal gait Psychiatric exam: Present: normal affect, depressed, anxious Skin exam: Present: warm, dry, intact, normal color <Tim Casper - Last Filed: 03/10/20 01:23> Course Vital Signs 03/09/20 22:10 Temperature 98.7 F Pulse Rate 118 H Respiratory 20 Rate Blood Pressure 102/64 O2 Sat by Pulse 97 Oximetry Procedures - Laceration Laceration #1 Consent Obtained: verbal consent Indication: laceration Site: upper extremity (left forearm) Size (cm): 15 Description: linear, clean Depth: simple, single layer Sedation/Analgesia: none Anesthetic Used: lidocaine 1% Anesthesia Technique: local infiltration Amount (mls): 10 Pre-repair: irrigated extensively, deep structures intact Type of Sutures: nylon, vicryl Size of Sutures: 4-0 Number of Sutures: 6 Technique: simple, interrupted, running Patient Tolerated Procedure: well, no complications <Tim Casper - Last Filed: 03/10/20 01:23> Medical Decision Making <Tim Casper - Last Filed: 03/10/20 01:23> <Wilfredo Daugherty - Last Filed: 03/10/20 01:46> - Medical Decision Making Patient is 19-year-old female presented to emergency department with chief complaint laceration. Patient has history of self-harm and lacerated the anterior aspect of the left forearm. On exam this appears a 15cm laceration. Muscle fascia layer is visible but not injured. Patient is able to move her fingers without difficulty. No signs of ischemia to the distal upper left extremity. +2 ulnar and radial pulses bilaterally. Neurovascularly intact in the left upper pressure on it. 5 absorbable sutures placed. When running nonabsorbable suture. Patient tolerated procedure well. Laceration site was thoroughly irrigated. Patient evaluated by EPS. Admission was advised. Patient will be admitted for further psychiatric management. Patient will be petition. Case discussed with physician. (Tim Casper) I did see this patient and conduct history and physical exam including filing the clinical certification, including advising patient of the legal purposes of exam. (Wilfredo Daugherty) Disposition Is patient prescribed a controlled substance at d/c from ED?: No Time of Disposition: 01:34 <Tim Casper - Last Filed: 03/10/20 01:23> <Wilfredo Daugherty - Last Filed: 03/10/20 01:46> Clinical Impression: Laceration, Intentional self-harm Disposition: ADMITTED IP TO THIS [facility] Condition: Fair Additional Instructions: She will be admitted Referrals: Nadja Goldberg MD [Primary Care Provider] - 1-2 days
[2020-03-10] MEDS ORDERED: ALPRAZolam 1 MG TAB PO STA (01:23)
[2020-03-10] MEDS ORDERED: diphenhydrAMINE 50 MG/ML 1 ML VIAL IM STA (04:36)
[2020-03-10] MEDS ORDERED: OLANZapine ODT 10 MG TAB PO SCH (09:00)
[2020-03-10 09:13] LABS: Basophils % (A) 1 %; Eosinophils # (A) 0.1 k/uL (0-0.7); Eosinophils % (A) 1 %; HCT 37.9 % (34.0-46.0); HGB 12.6 gm/dL (11.4-16.0); Lymphocytes # (A) 1.5 k/uL (1.0-4.8); Lymphocytes % (A) 32 %; MCH 29.8 pg (25.0-35.0); MCHC 33.2 g/dL (31.0-37.0); MCV 89.6 fL (80.0-100.0); Monocytes # (A) 0.4 k/uL (0-1.0); Monocytes % (A) 9 %; Neutrophils # (A) 2.6 k/uL (1.3-7.7); Neutrophils % (A) 56 %; Platelet Count 180 k/uL (150-450); RBC 4.23 m/uL (3.80-5.40); RDW 12.4 % (11.5-15.5); WBC 4.7 k/uL (3.8-10.6)
[2020-03-10 09:21] VITALS: RESP 14; TEMP 97.8
[2020-03-10 09:24] LABS: ALT 13 U/L (4-34); AST 29 U/L (14-36); African American GFR (CKD) >90 (>60 ml/min/1.73 sqM); Albumin 4.3 g/dL (3.5-5.0); Alkaline Phosphatase 46 U/L (38-126); Anion Gap 7 mmol/L; Blood Urea Nitrogen 8 mg/dL (7-17); Calcium 9.2 mg/dL (8.4-10.2); Carbon Dioxide 26 mmol/L (22-30); Chloride 106 mmol/L (98-107); Glucose 90 mg/dL (74-99); Non-African American GFR(CKD) >90 (>60 ml/min/1.73 sqM); Potassium 3.7 mmol/L (3.5-5.1); Sodium 139 mmol/L (137-145); Total Bilirubin 0.6 mg/dL (0.2-1.3); Total Protein 6.5 g/dL (6.3-8.2)
[2020-03-10 09:37] LABS: Amphetamine Screen,Urine Not Detected (NotDetected); Barbiturate Screen,Urine Not Detected (NotDetected); Benzodiazepines Screen,Urine Detected (NotDetected); Cocaine Screen,Urine Not Detected (NotDetected); Methadone Screen, Urine Not Detected (NotDetected); Opiate Screen,Urine Not Detected (NotDetected); Oxycodone Screen, Urine Not Detected (NotDetected); Phencyclidine Screen,Urine Not Detected (NotDetected); Tricyclic Antidepressant,Urine Not Detected (NotDetected); Urn Cannabinoid Scrn Detected (NotDetected)
[2020-03-10 12:52] VITALS: BP 132/78; PULSE 64
== END 2020-03-10 12:50 | disposition other institution (70) ==
LOC: EC 22:04
DX: S51.812A Laceration without foreign body of left forearm, initial encounter (principal); Z91.040 Latex allergy status; Z91.5 Personal history of self-harm; Z20.828 Contact with and (suspected) exposure to other viral communicable diseases; X83.8XXA Intentional self-harm by other specified means, initial encounter; Y93.89 Activity, other specified; Y92.009 Unspecified place in unspecified non-institutional (private) residence as the place of occurrence of the external cause
CPT/HCPCS: 12005 ×2; 99285 ×2; 82075; 36415; 80053; 85025; 81025; 80306; U0003; J1200; J2001

== ENCOUNTER 2020-05-28 02:47 | Inpatient (IN) | payer MEDICAID, OTHER ==
--- NOTE | 2020-05-28 02:54 | ED ---
Psych HPI - General Stated Complaint: Mental health Time Seen by Provider: 05/28/20 02:51 Source: RN notes reviewed, old records reviewed - History of Present Illness Initial Comments: This is a 20-year-old female presented for evaluation under petition friend for psychiatric illness. Patient is not forthcoming with symptoms spoke patient is petition by friend for suicidal ideation MD Complaint: suicidal ideation, feels depressed -: unknown Associated Psychiatric Symptoms: depression, suicidal ideation, racing thoughts History of same: Yes Quality: intermittent, changing over time, getting worse Improves With: none Worsens With: none Context: significant life stressor Associated Symptoms: denies other symptoms Treatments Prior to Arrival: placed on mental health hold If Self Harm: admits thoughts of self harm - Related Data Home Medications Medication Instructions Recorded Confirmed hydrOXYzine pamoate [Vistaril] 25 mg PO Q6H PRN 03/10/20 03/10/20 Previous Rx's Medication Instructions Recorded Sertraline [Zoloft] 50 mg PO DAILY 28 Days tab 06/08/19 traZODone HCL [Desyrel] 50 mg PO HS 28 Days tab 06/08/19 Allergies Allergy/AdvReac Type Severity Reaction Status Date / Time latex Allergy Unknown Verified 05/28/20 03:09 Latex, Natural Rubber Allergy Unknown Verified 03/10/20 06:52 Review of Systems ROS Statement: Those systems with pertinent positive or pertinent negative responses have been documented in the HPI. ROS Other: All systems not noted in ROS Statement are negative. Past Medical History Past Medical History: No Reported History Additional Past Medical History / Comment(s): LIVER ENZYMES ELEV. ON PO AB FOR ECOLI IN URINE. CHOLECYSTITIS. History of Any Multi-Drug Resistant Organisms: None Reported Past Surgical History: Adenoidectomy, Cholecystectomy, Tonsillectomy Past Anesthesia/Blood Transfusion Reactions: No Reported Reaction Past Psychological History: Anxiety, Depression Past Alcohol Use History: Occasional Past Drug Use History: Marijuana - Past Family History Mother Family Medical History: No Reported History Father History Unknown: Yes Family Medical History: Unable to Obtain General Exam - General Exam Comments Initial Comments: Multiple superficial lacerations to both forearms General appearance: alert, anxious, in distress Head exam: Present: atraumatic, normocephalic, normal inspection Eye exam: Present: normal appearance, PERRL, EOMI. Absent: scleral icterus, conjunctival injection, periorbital swelling ENT exam: Present: normal exam, mucous membranes moist Neck exam: Present: normal inspection. Absent: tenderness, meningismus, lymphadenopathy Respiratory exam: Present: normal lung sounds bilaterally. Absent: respiratory distress, wheezes, rales, rhonchi, stridor Cardiovascular Exam: Present: regular rate, normal rhythm, normal heart sounds. Absent: systolic murmur, diastolic murmur, rubs, gallop, clicks GI/Abdominal exam: Present: soft, normal bowel sounds. Absent: distended, tenderness, guarding, rebound, rigid Extremities exam: Present: normal inspection, full ROM, normal capillary refill. Absent: tenderness, pedal edema, joint swelling, calf tenderness Back exam: Present: normal inspection Neurological exam: Present: alert, oriented X3, CN II-XII intact Psychiatric exam: Present: normal affect, normal mood Skin exam: Present: warm, dry, intact, normal color. Absent: rash Course Vital Signs 05/28/20 02:58 Temperature 97.8 F Pulse Rate 89 Respiratory 18 Rate Blood Pressure 107/64 O2 Sat by Pulse 99 Oximetry - Reevaluation(s) Reevaluation #1: 05/28/20 03:44 Medical records reviewed Reevaluation #2: 05/28/20 03:44 Lacerations do not need repair Reevaluation #3: 05/28/20 03:44 Medical clear for psychiatric evaluation Reevaluation #4: 05/28/20 06:25 Patient is evaluated again after multiple complaints that her laceration is healed, there is an unknown time of onset of laceration is no bleeding from the wound and is significantly superficial. She has multiple stages of difficulty healing wounds on both arms and upper leg, 2 lacerations on her arm still have sutures in them from unknown suture placement Medical Decision Making - Medical Decision Making 20 female who was seen in however psychiatry here in the ER, will be transferred to psychiatric inpatient treatment - Lab Data Lab Results 05/28/20 Range/Units 04:12 Urine Opiates Screen Not Detected (NotDetected) Ur Oxycodone Screen Not Detected (NotDetected) Urine Methadone Screen Not Detected (NotDetected) Ur Propoxyphene Screen Not Detected (NotDetected) Ur Barbiturates Screen Not Detected (NotDetected) U Tricyclic Antidepress Not Detected (NotDetected) Ur Phencyclidine Scrn Not Detected (NotDetected) Ur Amphetamines Screen Not Detected (NotDetected) U Methamphetamines Scrn Not Detected (NotDetected) U Benzodiazepines Scrn Detected H (NotDetected) Urine Cocaine Screen Not Detected (NotDetected) U Marijuana (THC) Screen Detected H (NotDetected) Disposition Clinical Impression: Depression, Suicidal ideation, Major depressive disorder, recurrent episode Disposition: TRANSFER TO PSYCH HOSP/UNIT Condition: Fair Is patient prescribed a controlled substance at d/c from ED?: No Referrals: Nadja Goldberg MD [Primary Care Provider] - 1-2 days
[2020-05-28 04:34] LABS: Amphetamine Screen,Urine Not Detected (NotDetected); Cocaine Screen,Urine Not Detected (NotDetected); Opiate Screen,Urine Not Detected (NotDetected); Phencyclidine Screen,Urine Not Detected (NotDetected); Urn Cannabinoid Scrn Detected (NotDetected)
[2020-05-28 04:35] LABS: Barbiturate Screen,Urine Not Detected (NotDetected); Benzodiazepines Screen,Urine Detected (NotDetected); Methadone Screen, Urine Not Detected (NotDetected); Oxycodone Screen, Urine Not Detected (NotDetected); Tricyclic Antidepressant,Urine Not Detected (NotDetected)
[2020-05-28] MEDS ORDERED: LORazepam 1 MG TAB PO PRN (07:06)
[2020-05-28] MEDS ORDERED: MAG HYDROX/AL HYDROX/SIMETH 30 ML CUP PO PRN (07:06)
[2020-05-28] MEDS ORDERED: MAGNESIUM HYDROXIDE 2,400 MG/10 ML CUP PO PRN (07:06)
[2020-05-28 08:51] LABS: Basophils % (A) 1 %; Eosinophils # (A) 0.1 k/uL (0-0.7); Eosinophils % (A) 3 %; HCT 39.3 % (34.0-46.0); HGB 13.1 gm/dL (11.4-16.0); Lymphocytes # (A) 1.4 k/uL (1.0-4.8); Lymphocytes % (A) 35 %; MCH 30.6 pg (25.0-35.0); MCHC 33.4 g/dL (31.0-37.0); MCV 91.4 fL (80.0-100.0); Mean Platelet Volume 8.4; Monocytes # (A) 0.3 k/uL (0-1.0); Monocytes % (A) 8 %; Neutrophils % (A) 51 %; Platelet Count 204 k/uL (150-450); RDW 12.1 % (11.5-15.5); WBC 3.9 k/uL (3.8-10.6)
[2020-05-28 08:56] LABS: ALT 13 U/L (4-34); AST 25 U/L (14-36); African American GFR (CKD) >90 (>60 ml/min/1.73 sqM); Albumin 4.7 g/dL (3.5-5.0); Alkaline Phosphatase 54 U/L (38-126); Anion Gap 8 mmol/L; Bilirubin, Delta 0.2 mg/dL (0.0-0.2); Bilirubin,Unconjugated 0.3 mg/dL (0.0-1.1); Blood Urea Nitrogen 13 mg/dL (7-17); Calcium 9.4 mg/dL (8.4-10.2); Carbon Dioxide 29 mmol/L (22-30); Chloride 104 mmol/L (98-107); Cholesterol 154 mg/dL (<200); Glucose 81 mg/dL (74-99); HDL Cholesterol 41 mg/dL (40-60); LDL Cholesterol,Calculated 92 mg/dL (0-99); Non-African American GFR(CKD) >90 (>60 ml/min/1.73 sqM); Potassium 3.9 mmol/L (3.5-5.1); Sodium 141 mmol/L (137-145); Total Bilirubin 0.5 mg/dL (0.2-1.3); Total Protein 7.3 g/dL (6.3-8.2); Triglycerides 105 mg/dL (<150)
[2020-05-28] MEDS ORDERED: SERTRALINE 50 MG TAB PO SCH (09:00)
[2020-05-28] MEDS: NICOTINE 14MG/24HR PATCH TRANSDERM SCH ×2 (09:44→11:59)
[2020-05-28] MEDS ORDERED: FLUoxetine HCL 20 MG CAP PO SCH (11:45)
[2020-05-28] MEDS: CITALOPRAM HYDROBROMIDE 20 MG TAB PO SCH (11:58)
--- NOTE | 2020-05-28 12:02 | P.HP ---
Psychiatric H&P - . H&P Date: 05/28/20 History & Physical: Allergies Allergy/AdvReac Type Severity Reaction Status Date / Time Latex, Natural Rubber Allergy Unknown Verified 05/28/20 06:46 Vital Signs Temp 97.7 F 05/28/20 07:17 Pulse 73 05/28/20 07:17 Resp 18 05/28/20 07:17 BP 101/55 05/28/20 07:17 Pulse Ox 97 05/28/20 06:40 Intake & Output 05/27/20 05/28/20 05/28/20 18:59 06:59 18:59 Weight 45.359 kg Laboratory Last Values WBC 3.9 k/uL (3.8-10.6) 05/28/20 08:08 RBC 4.30 m/uL (3.80-5.40) 05/28/20 08:08 Hgb 13.1 gm/dL (11.4-16.0) 05/28/20 08:08 Hct 39.3 % (34.0-46.0) 05/28/20 08:08 MCV 91.4 fL (80.0-100.0) 05/28/20 08:08 MCH 30.6 pg (25.0-35.0) 05/28/20 08:08 MCHC 33.4 g/dL (31.0-37.0) 05/28/20 08:08 RDW 12.1 % (11.5-15.5) 05/28/20 08:08 Plt Count 204 k/uL (150-450) 05/28/20 08:08 Neutrophils % 51 % 05/28/20 08:08 Lymphocytes % 35 % 05/28/20 08:08 Monocytes % 8 % 05/28/20 08:08 Eosinophils % 3 % 05/28/20 08:08 Basophils % 1 % 05/28/20 08:08 Neutrophils # 2.0 k/uL (1.3-7.7) 05/28/20 08:08 Lymphocytes # 1.4 k/uL (1.0-4.8) 05/28/20 08:08 Monocytes # 0.3 k/uL (0-1.0) 05/28/20 08:08 Eosinophils # 0.1 k/uL (0-0.7) 05/28/20 08:08 Basophils # 0.0 k/uL (0-0.2) 05/28/20 08:08 Sodium 141 mmol/L (137-145) 05/28/20 08:08 Potassium 3.9 mmol/L (3.5-5.1) 05/28/20 08:08 Chloride 104 mmol/L (98-107) 05/28/20 08:08 Carbon Dioxide 29 mmol/L (22-30) 05/28/20 08:08 Anion Gap 8 mmol/L 05/28/20 08:08 BUN 13 mg/dL (7-17) 05/28/20 08:08 Creatinine 0.90 mg/dL (0.52-1.04) 05/28/20 08:08 Est GFR (CKD-EPI)AfAm >90 (>60 ml/min/1.73 sqM) 05/28/20 08:08 Est GFR (CKD-EPI)NonAf >90 (>60 ml/min/1.73 sqM) 05/28/20 08:08 Glucose 81 mg/dL (74-99) 05/28/20 08:08 Calcium 9.4 mg/dL (8.4-10.2) 05/28/20 08:08 Total Bilirubin 0.5 mg/dL (0.2-1.3) 05/28/20 08:08 Conjugated Bilirubin 0.0 mg/dL (0.0-0.3) 05/28/20 08:08 Unconjugated Bilirubin 0.3 mg/dL (0.0-1.1) 05/28/20 08:08 Delta Bilirubin 0.2 mg/dL (0.0-0.2) 05/28/20 08:08 AST 25 U/L (14-36) 05/28/20 08:08 ALT 13 U/L (4-34) 05/28/20 08:08 Alkaline Phosphatase 54 U/L (38-126) 05/28/20 08:08 Total Protein 7.3 g/dL (6.3-8.2) 05/28/20 08:08 Albumin 4.7 g/dL (3.5-5.0) 05/28/20 08:08 Triglycerides 105 mg/dL (<150) 05/28/20 08:08 Cholesterol 154 mg/dL (<200) 05/28/20 08:08 LDL Cholesterol, Calc 92 mg/dL (0-99) 05/28/20 08:08 HDL Cholesterol 41 mg/dL (40-60) 05/28/20 08:08 TSH 2.630 mIU/L (0.465-4.680) 05/28/20 08:08 Urine Opiates Screen Not Detected (NotDetected) 05/28/20 04:12 Ur Oxycodone Screen Not Detected (NotDetected) 05/28/20 04:12 Urine Methadone Screen Not Detected (NotDetected) 05/28/20 04:12 Ur Propoxyphene Screen Not Detected (NotDetected) 05/28/20 04:12 Ur Barbiturates Screen Not Detected (NotDetected) 05/28/20 04:12 U Tricyclic Antidepress Not Detected (NotDetected) 05/28/20 04:12 Ur Phencyclidine Scrn Not Detected (NotDetected) 05/28/20 04:12 Ur Amphetamines Screen Not Detected (NotDetected) 05/28/20 04:12 U Methamphetamines Scrn Not Detected (NotDetected) 05/28/20 04:12 U Benzodiazepines Scrn Detected (NotDetected) H 05/28/20 04:12 Urine Cocaine Screen Not Detected (NotDetected) 05/28/20 04:12 U Marijuana (THC) Screen Detected (NotDetected) H 05/28/20 04:12 05/28/20 11:53 IDENTIFYING DATA: Patient is a 20-year-old female currently lives with her family friend and has 1 kid and is unemployed/supported by her family. HPI: Patient presented to the hospital ester for psychiatric evaluation on a petition from a friend about patient's condition. Patient apparently was not forthcoming regarding her symptoms in the ER however that the patient stated that patient was having suicidal thoughts and feeling depressed. Patient is currently on a deferral from [facility] andis also being followed by [facility] and was admitted for further evaluation and treatment. Patient was seen todayin her roomand was agreeable to speak to selling underwriter in the office. Patient ap peared to have poor hygiene and grooming and appeared to be thin and unkempt appearance. She was tearful during conversation and repeatedly asked about discharge. She was minimizing her symptoms and her depressionand her need for hospitalization. She states that she came to the hospital "with a friend so we can both get treatmentbut I was the only one that got admitted". She states that she has beenhaving depression lately and anxiety and was fairly guarded/evasive about her symptoms and also her cutting on her arm. Patient showed selling underwriter several deep lacerations one with stitches on it on her forearm. She claims to sleep fairly andhave a fair appetite. Patient has very poor insight and judgment and is impulsive. She denies any previous history of manic episodes. Patient states that she is previously on antidepressants however states that they are not helping her. Patient denies any suicidal or homicidal ideations intent or plan. At this time patient denies any auditory or visual hallucinations. Patient denies any flight of ideas racing thoughts and increased in goal directed behavior. patient has a history of Xanax abuse. Patient also admitted to smoking marijuana daily for her anxiety. Patient admits to smoking cigarettes daily.patient's UDS was positive for benzodiazepines and THC. PAST PSYCHIATRIC HISTORY: Patient states that she has a history of depression and anxiety. Patient also was previously admitted at [facility] in [place] for depression and is currently on a deferral. Patient claims that she had 1 overdose suicide attempt when she was 12 years old.atcrystal has an extensive history of cutting of her arm. She states that she has been on several different antidepressants in the past PMH:denies ALLERGIES: as per EMR CHEMICAL DEPENDENCY HISTORY: as per HPI FAMILY PSYCHIATRIC/SUBSTANCE USE HISTORY: Claims her grandmother has schizophrenia SOCIAL HISTORY: She states that she was raised in [facility] and moved around a lot when she was younger. She claims that she was raised by her mother and her grandparents. 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 he denies any legal history. MENTAL STATUS EXAM: General Appearance: Patient appears to be stated age is alert, difficult to redirect and guarded/evasive. Patient appears to have a depressed affect and appears to have poor grooming and poor hygiene. Behavior: Patient is calmly seated without any agitated behavior.tearful at times Speech: Patient's speech is fluent and nonpressured. Mood/Affect: Patient reports their mood is depressed, affect is congruent and tearful at times Suicidality/Homicidality: Patient denies having any suicidal or homicidal ideation intent or plan. Perceptions: Patient denies any auditory or visual hallucinations. Though content/process: There is no evidence of any delusional thought content and thought process is linear and goal-directed. guarded/evasive. Memory and concentration: AOX3, grossly intact for the purposes of this session. Can spell "WORLD" backwards Judgment and insight: poor/impulsive STRENGTHS/WEAKNESSES: strength is that patient is resilient, weaknesses that patient has impulsive tendencies chronic mental illness. INTELLECT: Below average IMPRESSIONS: Major depressive disorder, recurrent, severe Anxiety disorder unspecified Cannabis use disorder Benzodiazepine abuse nicotine dependence PLAN: -Patient is admitted under involuntary status to MHU for stabilization of psychiatric symptoms and safety. Patient signed medication consent and is placed in patient's chart. Will be filing demand for hearing at this time as patient is currently on deferral through [facility]. -Medications : patient is agreeable to start Celexa 20 mg daily for mood/anxiety. discontinue trazodone and replaced with Seroquel 25 mg daily at bedtime for mood stabilization/insomnia. We'll start Vistaril 25 mg every 6 hours when necessary for anxiety. -Geodon IM prn for agitation. -Patient was counselled on substance abuse and desired to cut back on use -Patient was informed of the risks, benefits and side effects of the medication and patient verbally consented to taking the medications. Patient signed med consent form and was placed in chart. -NRT - nicotine patch - on board for discharge planning. Encouraged patient to participate in meliue and groups to work on coping skills. We ll await demand for hearing date. 05/28/20 12:00
[2020-05-28] MEDS ORDERED: ZIPRASIDONE 20 MG VIAL IM ONE (12:30)
[2020-05-28] MEDS ORDERED: WATER FOR INJECTION, STERILE 10 ML IV ONE (12:30)
[2020-05-28] MEDS: ZIPRASIDONE 20 MG VIAL IM PRN (12:33)
--- NOTE | 2020-05-28 14:15 | P.CONS ---
History of Present Illness - Reason for Consult Medical clearance - History of Present Illness Patient is a pleasant 20-year-old female admitted for depression. Patient the is tearful he she just wanted to his 5-year-old. Patient denied any fever chills nausea vomiting abdominal pain dysuria. A she denied any hallucinations presently denied any suicidal ideation apparently she had those thoughts when s he came to ER. Patient does have history of marijuana use and benzodiazepine abuse. - Review of Systems REVIEW OF SYSTEMS: CONSTITUTIONAL: No fever, no malaise, no fatigue. HEENT: No recent visual problems or hearing problems. Denied any sore throat. CARDIOVASCULAR: No chest pain, orthopnea, PND, no palpitations, no syncope. PULMONARY: No shortness of breath, no cough, no hemoptysis. GASTROINTESTINAL: No diarrhea, no nausea, no vomiting, no abdominal pain. NEUROLOGICAL: No headaches, no weakness, no numbness. HEMATOLOGICAL: Denies any bleeding or petechiae. GENITOURINARY: Denies any burning micturition, frequency, or urgency. MUSCULOSKELETAL/RHEUMATOLOGICAL: Denies any joint pain, swelling, or any muscle pain. ENDOCRINE: Denies any polyuria or polydipsia. The rest of the 14-point review of systems is negative. Past Medical History Past Medical History: No Reported History Additional Past Medical History / Comment(s): LIVER ENZYMES ELEV. ON PO AB FOR ECOLI IN URINE. CHOLECYSTITIS. History of Any Multi-Drug Resistant Organisms: None Reported Past Surgical History: Adenoidectomy, Cholecystectomy, Tonsillectomy Past Anesthesia/Blood Transfusion Reactions: No Reported Reaction Past Psychological History: Anxiety, Depression Past Alcohol Use History: Occasional Past Drug Use History: Marijuana - Past Family History Mother Family Medical History: No Reported History Father History Unknown: Yes Family Medical History: Unable to Obtain Medications and Allergies Home Medications Medication Instructions Recorded Confirmed Type traZODone HCL [Desyrel] 50 mg PO HS 28 Days tab 06/08/19 05/28/20 Rx OLANZapine [ZyPREXA] 10 mg PO HS 05/28/20 05/28/20 History Sertraline [Zoloft] 100 mg PO DAILY 05/28/20 05/28/20 History Allergies Allergy/AdvReac Type Severity Reaction Status Date / Time Latex, Natural Rubber Allergy Unknown Verified 05/28/20 06:46 Physical Exam Vitals: Vital Signs Temp Pulse Pulse Resp BP BP Pulse Ox 05/28/20 07:17 97.7 F 73 18 101/55 05/28/20 06:40 98.0 F 80 16 110/70 97 05/28/20 02:58 97.8 F 89 18 107/64 99 Intake and Output 05/27/20 05/28/20 05/28/20 22:59 06:59 14:59 Other: Weight 45.359 kg PHYSICAL EXAMINATION: GENERAL: The patient is alert and oriented x3, not in any acute distress. Well developed, well nourished. HEENT: Pupils are round and equally reacting to light. EOMI. No scleral icterus. No conjunctival pallor. Normocephalic, atraumatic. No pharyngeal erythema. No thyromegaly. CARDIOVASCULAR: S1 and S2 present. No murmurs, rubs, or gallops. PULMONARY: Chest is clear to auscultation, no wheezing or crackles. ABDOMEN: Soft, nontender, nondistended, normoactive bowel sounds. No palpable organomegaly. MUSCULOSKELETAL: No joint swelling or deformity. EXTREMITIES: No cyanosis, clubbing, or pedal edema. NEUROLOGICAL: Gross neurological examination did not reveal any focal deficits. SKIN: No rashes. Results CBC & Chem 7: 05/28/20 08:08 05/28/20 08:08 Labs: Abnormal Lab Results - Last 24 Hours (Table) 05/28/20 Range/Units 04:12 U Benzodiazepines Scrn Detected H (NotDetected) U Marijuana (THC) Screen Detected H (NotDetected) Assessment and Plan Plan: Major depression: Management as per primary service -Cannabis use and benzodiazepine abuse: Counseling was provided
[2020-05-28 15:18] VITALS: BMI 17.2
[2020-05-28 16:04] LABS: Hemoglobin A1C 4.9 % (4.0-6.0)
[2020-05-28] MEDS: QUEtiapine 25 MG TAB PO SCH (20:12)
[2020-05-28] MEDS ORDERED: traZODone HCL 50 MG TAB PO SCH (21:00)
[2020-05-29] MEDS: CITALOPRAM HYDROBROMIDE 20 MG TAB PO SCH (09:14)
[2020-05-29] MEDS: NICOTINE 14MG/24HR PATCH TRANSDERM SCH (09:14)
--- NOTE | 2020-05-29 10:19 | P.PN ---
Progress Note - Text Progress Note Date: 05/29/20 Interval History: Patient was seen wandering the hallways and was directable and agreeable to sp eak with proposal writer in the office. Patient appeared to be mildly less impulsive and less tearful today. She continues to have poor hygiene and grooming. She did not offer any overnight complaints and was fairly superficial with proposal writer and continues to be guarded. She continues to state that she is on a "treatment order with [facility]" and repeatedly asks about discharge. Court process was explained once again to patient about the deferral process and also the demand for hearing which has been filed. Patient claims that she will continue to take her medications. She states that she has not content any groups thus far. She denied any changes in her mood and states that she feels "fine". She continues to endorse anxiety. She states she is able to sleep last night throughout the night. At this time patient denies any suicidal or homical ideations, intent or plan. Patient denies any auditory, visual hallucinations. Patient denies any side effects from the medications and has been compliant with meds. Mental Status Exam: General Appearance: Patient appears to be stated age is alert, superficial today and guarded/evasive. Patient continues to have poor grooming and poor hygiene. Behavior: Patient is calmly seated without any agitated behavior. Less tearful today. Speech: Patient's speech is fluent and nonpressured. Mood/Affect: Patient reports their mood is "okay", affect is incongruent Suicidality/Homicidality: Patient denies having any suicidal or homicidal ideation intent or plan. Perceptions: Patient denies any auditory or visual hallucinations. Though content/process: There is no evidence of any delusional thought content and thought process is linear and goal-directed. guarded/evasive. Minimizes her symptoms. Memory and concentration: AOX3, grossly intact for the purposes of this session. Can spell "WORLD" backwards Judgment and insight: poor/impulsive, improving mildly Assessment Major depressive disorder, recurrent, severe Anxiety disorder unspecified Cannabis use disorder Benzodiazepine abuse nicotine dependence Plan: -Patient continues to meet criteria for inpatient psychiatric admission for symptom stabilization and safety. Patient has not signed adult voluntary form and was placed in patient's chart. Demand for hearing was filed on 05/28/2020, currently awaiting court date. -Medications: Continue with Celexa 20 mg daily for mood/anxiety. Continue with Seroquel 25 mg nightly for mood stabilization/insomnia. Continue with Vistaril 25 mg every 6 hours when necessary for anxiety. -When necessary Geodon for agitation/aggression. -NRT - nicotine patch -SW on board for discharge planning. Encouraged the patient to participate in milieu. We'll await full court hearing date.
[2020-05-29] MEDS: hydrOXYzine pamoate 25 MG CAP PO PRN ×2 (11:50→18:32)
[2020-05-29] MEDS: ACETAMINOPHEN TAB 325 MG TAB PO PRN (18:33)
[2020-05-29] MEDS: QUEtiapine 25 MG TAB PO SCH (19:53)
[2020-05-30] MEDS: NICOTINE 14MG/24HR PATCH TRANSDERM SCH (09:14)
[2020-05-30] MEDS: CITALOPRAM HYDROBROMIDE 20 MG TAB PO SCH (09:14)
--- NOTE | 2020-05-30 09:57 | P.CONS ---
History of Present Illness - Reason for Consult Consult date: 05/30/20 wound care - History of Present Illness this is a 20-year-old patient being seen on the mental health unit for assessment of suture removal. Patient states that she's had the sutures in for approximately 10 days. The area is itchy and has not had any drainage. Review of Systems Review Of Systems: Constitutional: No fever, no chills, no night sweats. No weight change. No weakness, fatigue or lethargy. No daytime sleepiness. Integumentary:no wounds, no lesions. No rash or pruritus. No unusual bruising. No change in hair or nails. Past Medical History Past Medical History: No Reported History Additional Past Medical History / Comment(s): LIVER ENZYMES ELEV. ON PO AB FOR ECOLI IN URINE. CHOLECYSTITIS. History of Any Multi-Drug Resistant Organisms: None Reported Past Surgical History: Adenoidectomy, Cholecystectomy, Tonsillectomy Past Anesthesia/Blood Transfusion Reactions: No Reported Reaction Past Psychological History: Anxiety, Depression Past Alcohol Use History: Occasional Past Drug Use History: Marijuana - Past Family History Mother Family Medical History: No Reported History Father History Unknown: Yes Family Medical History: Unable to Obtain Medications and Allergies Home Medications Medication Instructions Recorded Confirmed Type traZODone HCL [Desyrel] 50 mg PO HS 28 Days tab 06/08/19 05/28/20 Rx OLANZapine [ZyPREXA] 10 mg PO HS 05/28/20 05/28/20 History Sertraline [Zoloft] 100 mg PO DAILY 05/28/20 05/28/20 History Allergies Allergy/AdvReac Type Severity Reaction Status Date / Time Latex, Natural Rubber Allergy Unknown Verified 05/28/20 06:46 Physical Exam Vitals: Vital Signs Temp Pulse Resp BP Pulse Ox 05/30/20 06:46 98.1 F 52 L 16 96/43 99 Physical exam: General Appearance: Alert, cooperative, no distress, appears stated age. Skin: ight upper extremity lacerations with sutures in place, laceration line is well approximated no drainage noted. Periwound shows erythema and irritation. Sutures are intact.. all other Skin color, texture, tugor normal, no rashes or lesions. Neurologic: Alert oriented x3 Results CBC & Chem 7: 05/28/20 08:08 05/28/20 08:08 Assessment and Plan (1) Visit for suture removal Current Visit: Yes Status: Acute Code(s): Z48.02 - ENCOUNTER FOR REMOVAL OF SUTURES SNOMED Code(s): 442652192 (2) Laceration of right upper arm without complication Current Visit: Yes Status: Acute Code(s): S41.111A - LACERATION W/O FOREIGN BODY OF RIGHT UPPER ARM, INIT ENCNTR SNOMED Code(s): 17092606212513395 Plan: may remove sutures. Apply bacitracin to the site daily as needed. Keep area clean and dry. Thank you for the consultation any questions please contact the wound care center DNP note has been reviewed and discussed with Dr. Cox and the impression and plan of care has been directed as dictated.
--- NOTE | 2020-05-30 10:35 | P.PN ---
Progress Note - Text Progress Note Date: 05/30/20 Interval History: Patient was seen sitting in a group this morning and was directable and agreea ble to speak with administrative underwriter in the office. Patient appeared to be mildly less impulsive and less tearful today. She did not offer any overnight complaints and appeared to be slightly more cooperative today with brighter. Patient appeared to be calmer today. She continues to state that she is on a "treatment order with [facility]". She also spoke briefly about her medications and how they are helping her. Patient was agreeable to have her Celexa increased to 30 mg for tomorrow. She claims that her anxiety is still present during the day. she repeatedly asks about discharge. Patient claims that she will continue to take her medications. Patient claims that she will be going to groups over the weekend. She states she is able to sleep last night throughout the night. At this time patient denies any suicidal or homical ideations, intent or plan. Patient denies any auditory, visual hallucinations. Patient denies any side effects from the medications and has been compliant with meds. Mental Status Exam: General Appearance: Patient appears to be stated age is alert, superficial today and guarded/evasive. Patient has improving grooming and poor hygiene. Behavior: Patient is calmly seated without any agitated behavior. Appears to be calmer today. Speech: Patient's speech is fluent and nonpressured. Mood/Affect: Patient reports their mood is "ok" and anxious, affect is incongruent Suicidality/Homicidality: Patient denies having any suicidal or homicidal ideation intent or plan. Perceptions: Patient denies any auditory or visual hallucinations. Though content/process: There is no evidence of any delusional thought content and thought process is linear and goal-directed. Minimizes her symptoms. Memory and concentration: AOX3, grossly intact for the purposes of this session. Can spell "WORLD" backwards Judgment and insight: poor/impulsive, improving mildly Assessment Major depressive disorder, recurrent, severe Anxiety disorder unspecified Cannabis use disorder Benzodiazepine abuse nicotine dependence Plan: -Patient continues to meet criteria for inpatient psychiatric admission for symptom stabilization and safety. Patient has not signed adult voluntary form and was placed in patient's chart. Demand to be held on 06/04 at 9am -Medications: Increased Celexa 30 mg daily for mood/anxiety. Continue with Seroquel 25 mg nightly for mood stabilization/insomnia. Continue with Vistaril 25 mg every 6 hours when necessary for anxiety. -When necessary Geodon for agitation/aggression. -NRT - nicotine patch -SW on board for discharge planning. Encouraged the patient to participate in milieu. We'll await full court hearing date.
[2020-05-30] MEDS: BACITRACIN ZINC 500 UNIT/GM OINT 28.4 GM TUBE TOPICAL SCH (10:57)
[2020-05-30] MEDS: hydrOXYzine pamoate 25 MG CAP PO PRN (18:54)
[2020-05-30] MEDS: QUEtiapine 25 MG TAB PO SCH (20:12)
[2020-05-31] MEDS: BACITRACIN ZINC 500 UNIT/GM OINT 28.4 GM TUBE TOPICAL SCH (09:14)
[2020-05-31] MEDS: NICOTINE 14MG/24HR PATCH TRANSDERM SCH (09:14)
[2020-05-31] MEDS: CITALOPRAM HYDROBROMIDE 10 MG TAB PO SCH (09:14)
[2020-05-31] MEDS: hydrOXYzine pamoate 25 MG CAP PO PRN (13:21)
[2020-05-31] MEDS: ACETAMINOPHEN TAB 325 MG TAB PO PRN (13:21)
[2020-05-31] MEDS: QUEtiapine 25 MG TAB PO SCH (20:02)
--- NOTE | 2020-05-31 20:35 | PN ---
PROGRESS NOTE DATE OF SERVICE: 05/31/2020 CHIEF COMPLAINT: The patient was admitted for depression with suicidal thinking. She had cut herself with two deep lacerations. She was on a deferral from a previous admission. INTERVAL HISTORY: Patient has been doing fair. She had a quiet day yesterday. She comes out in the day area. She interacts with others. She attended most of the groups yesterday. She was noted to be appropriate in group. She tended to have a reserved manner though was an active participant. She said she slept well last night. Today she has been up. She attended one group today. Her main focus was that she did need to be in the hospital. She said in reference to a note of Dr. Juarez, that she was tearful at the time he told her she would be in the hospital until the . She did not fully understand the specifics, though was aware of some aspects of her having had a deferral from her previous hospitalization. Today, she says that her mood has been good. She has not had any specific complaints other than feeling she does not need to be in the hospital. She has been cooperative with care. She reported no problems with her medications. It was not clear whether she felt the medications had made a difference so far. MENTAL STATUS: Patient sat with a little restlessness. She gave fair eye contact. She answered questions appropriately. Her thoughts were clear. She was not too spontaneous, though she was somewhat interactive. Her affect was in a reasonable range initially, though towards the end of the interview she seemed to withdrawal and have somewhat possibly angry manner. Her mood was dysphoric. She seemed moderately distressed. There was no indication of thought disorder. She denied any thoughts of harm. She emphasized that she has not been suicidal. She was oriented and alert. ASSESSMENT: I will continue the current diagnosis and treatment plan. We will continue to make efforts to engage the patient in individual and group therapeutic activities. I will continue psychotropic medications the same including Celexa 30 mg a day and Seroquel 25 mg at bedtime. I reviewed medication issues with the patient in terms of the indication and treatment protocols relating to antidepressants. I reviewed potential side effect issues with Seroquel, including risks for metabolic concerns and movement disorder. We will focus on stabilization and discharge planning. As noted, she has a hearing for her demand on the . MMODL / IJN: [id number] /
[2020-06-01] MEDS: BACITRACIN ZINC 500 UNIT/GM OINT 28.4 GM TUBE TOPICAL SCH (09:17)
[2020-06-01] MEDS: CITALOPRAM HYDROBROMIDE 10 MG TAB PO SCH (09:17)
[2020-06-01] MEDS: NICOTINE 14MG/24HR PATCH TRANSDERM SCH (09:17)
[2020-06-01] MEDS: QUEtiapine 25 MG TAB PO SCH (20:19)
--- NOTE | 2020-06-02 00:18 | PN ---
PROGRESS NOTE DATE OF SERVICE: 06/01/2020. CHIEF COMPLAINT: The patient was admitted for depression with suicidal thinking. She had cut herself with two deep lacerations. She was on a deferral from a previous admission. INTERVAL HISTORY: Patient has been doing fairly well. She had a quiet day yesterday. She comes down in the unit. She interacts with others. She has been appropriate in her interactions with staff and peers. She attended one group yesterday. She says that she slept fair last night. Apparently, her roommate was making it difficult for her to sleep soundly through the night. Today she has been up. She attended 2 groups today. She is anticipating her court hearing for her demand on the . As far as her mood, she feels that things have been better for her. She feels the medicines have been helpful. She has a better outlook. She was able to focus on some discharge planning issues. MENTAL STATUS: Patient sat with a little restlessness. She gave good eye contact. She answered questions appropriately. Her thoughts were clear and coherent. She was spontaneous and interactive. Her affect was in a reasonable range. She smiled. She was friendly. Her mood was even. She did not appear to be distressed. There was no indication of thought disorder. She voiced no thoughts of harm. Cognition was clear. ASSESSMENT: I will continue the current diagnosis and treatment plan. We will continue psychotropic medications the same. Patient appears to be making progress. I would anticipate the patient being discharged fairly soon once she has her court issues addressed. From the patient's standpoint, she was able to talk about her willingness to engage in her treatment and believes that outpatient treatment would be helpful for her. We will focus on stabilization and discharge planning. MMODL / IJN: [id number] /
[2020-06-02 06:56] VITALS: BP 99/57; PULSE 58; RESP 12; TEMP 98.1
[2020-06-02] MEDS: NICOTINE 14MG/24HR PATCH TRANSDERM SCH (08:46)
[2020-06-02] MEDS: BACITRACIN ZINC 500 UNIT/GM OINT 28.4 GM TUBE TOPICAL SCH (08:46)
[2020-06-02] MEDS: CITALOPRAM HYDROBROMIDE 10 MG TAB PO SCH (08:47)
--- NOTE | 2020-06-02 10:36 | P.PN ---
Progress Note - Text Progress Note Date: 06/02/20 Interval History: Patient was seen laying in bed this morning and was directable and agreeable to speak with science writer in the office. Patient appeared to be cooperative with science writer did not offer any overnight complaints. Patient appeared to be calmer today. She denied any complaints over the weekend and states that she has not heard anything from her rn review. Patient claims that she would like to speak with her rn review today about a possible waive and stip to defer going to court. She claims that she has been taking her medications and states that they've been helping with her anxiety and her mood. She also claims that over the weekend she spoke with her mother who states that she will be moving to a new trailer and would like patient to live with her there. Patient claims that she will continue to take her medications. She states she is able to sleep last night throughout the night. At this time patient denies any suicidal or homical ideations, intent or plan. Patient denies any auditory, visual hallucinations. Patient denies any side effects from the medications and has been compliant with meds. Mental Status Exam: General Appearance: Patient appears to be stated age is alert, less superficial today and attempts to cooperate. Patient has improving grooming and hygiene. Behavior: Patient is calmly seated without any agitated behavior. Appears to be calmer today. Speech: Patient's speech is fluent and nonpressured. Mood/Affect: Patient reports their mood is "good", affect is congruent and constricted. Suicidality/Homicidality: Patient denies having any suicidal or homicidal ideation intent or plan. Perceptions: Patient denies any auditory or visual hallucinations. Though content/process: There is no evidence of any delusional thought content and thought process is linear and goal-directed. Memory and concentration: AOX3, grossly intact for the purposes of this session. Can spell "WORLD" backwards Judgment and insight: poor/impulsive, improving mildly Assessment Major depressive disorder, recurrent, severe Anxiety disorder unspecified Cannabis use disorder Benzodiazepine abuse nicotine dependence Plan: -Patient continues to meet criteria for inpatient psychiatric admission for symptom stabilization and safety. Patient has not signed adult voluntary form and was placed in patient's chart. Demand to be held on 06/04 at 9am -Medications: Continue as Celexa 30 mg daily for mood/anxiety. Continue with Seroquel 25 mg nightly for mood stabilization/insomnia. Continue with Vistaril 25 mg every 6 hours when necessary for anxiety. -When necessary Geodon for agitation/aggression. -NRT - nicotine patch -SW on board for discharge planning. Encouraged the patient to participate in milieu. We'll await full court hearing date vs. patient seeing if she can waive and stip to court order. likely discharge either tomorrow or tuesday.
[2020-06-02] MEDS: hydrOXYzine pamoate 25 MG CAP PO PRN (14:59)
[2020-06-02] MEDS: ZIPRASIDONE 20 MG VIAL IM PRN (16:51)
[2020-06-02] MEDS: QUEtiapine 25 MG TAB PO SCH (22:18)
[2020-06-03] MEDS: CITALOPRAM HYDROBROMIDE 10 MG TAB PO SCH (08:21)
[2020-06-03] MEDS: NICOTINE 14MG/24HR PATCH TRANSDERM SCH (08:22)
[2020-06-03] MEDS: BACITRACIN ZINC 500 UNIT/GM OINT 28.4 GM TUBE TOPICAL SCH (08:22)
--- NOTE | 2020-06-03 11:18 | P.DS ---
Providers Date of admission: 05/28/20 06:40 Expected date of discharge: 06/03/20 Attending physician: Nnamdi Juarez MD Consults: 05/28/20 07:06 Consult Physician Routine Consulting Provider: Hugh Washburn Consult Reason/Comments: H & P Do you want consulting provider notified?: Yes, Notify in am Primary care physician: Nadja Goldberg - Discharge Diagnosis(es) (1) Major depressive disorder, recurrent severe without psychotic features Current Visit: Yes Status: Acute Priority: High (2) Anxiety disorder, unspecified Current Visit: Yes Status: Acute Priority: Medium (3) Cannabis use disorder, mild, abuse Current Visit: Yes Status: Acute Priority: Medium (4) Benzodiazepine abuse Current Visit: Yes Status: Acute Priority: Medium (5) Nicotine dependence Current Visit: Yes Status: Acute Priority: Low (6) Personality disorder, unspecified Current Visit: Yes Status: Acute Priority: Medium Hospital Course: Admission HPI: Patient is a 20-year-old female currently lives with her family friend and has 1 kid and is unemployed/supported by her family. Patient presented to the hospital esterday for psychiatric evaluation on a petition from a friend about patient's condition. Patient apparently was not forthcoming regarding her symptoms in the ER however that the patient stated that patient was having suicidal thoughts and feeling depressed. Patient is currently on a deferral from [facility] andis also being followed by [facility] and was admitted for further evaluation and treatment. Patient was seen todayin her roomand was agreeable to speak to telegraphic typewriter installer in the office. Patient appeared to have poor hygiene and grooming and appeared to be thin and unkempt appearance. She was tearful during conversation and repeatedly asked about discharge. She was minimizing her symptoms and her depressionand her need for hospitalization. She states that she came to the hospital "with a friend so we can both get treatmentbut I was the only one that got admitted". She states that she has beenhaving depression lately and anxiety and was fairly guarded/evasive about her symptoms and also her cutting on her arm. Patient showed telegraphic typewriter installer several deep lacerations one with stitches on it on her forearm. She claims to sleep fairly andhave a fair appetite. Patient has very poor insight and judgment and is impulsive. She denies any previous history of manic episodes. Patient states that she is previously on antidepressants however states that they are not helping her. Patient denies any suicidal or homicidal ideations intent or plan. At this time patient denies any auditory or visual hallucinations. Patient denies any flight of ideas racing thoughts and increased in goal directed behavior. patient has a history of Xanax abuse. Patient also admitted to smoking marijuana daily for her anxiety. Patient admits to smoking cigarettes daily.patient's UDS was positive for benzodiazepines and THC. Hospital course: Upon admission to the unit patient was initially depressed and anxious. Patient was initially admitted involuntarily and patient was already on a deferral and a demand for hearing was filed. Patient ended up signing a waive and stipulation form agreeing to court ordered treatment on 06/02/2020. Patient was however directable and agreeable to commence treatment. Patient got along well with other patients on the unit and followed unit protocol. Patient was compliant with the medications and denied any side effects throughout hospital course. Patient was started on Celexa and titrated up to a dose of 30 mg daily for mood/anxiety. Patient was also started on Seroquel 25 mg daily at bedtime for mood stabilization/insomnia. Patient was also started on Vistaril 25 mg when necessary for anxiety. Patient spoke of her stressors and engaged in therapy both group and individual. Patient stated that she has been working on her coping skills and distress tolerance and learning new techniques to avoid self- inflicted harm to herself. Patient was also seen by medical team for history and physical exam. Patient was seen by the hospitalist for removal of patient's sutures on her forearm from previous self-inflicted lacerations. She was placed on topical antibiotic for these lacerations. Throughout the course of the hospitalization patient gradually improved with regards to mood, anxiety, sleep and became more future oriented with improved insight and judgment. On the day of discharge patient denied any suicidal or homicidal ideations intent or plan denied any auditory or visual hallucinations. Patient endorsed wanting to live for her future and her family. The patient denied any access to guns or weapons. Patient denied any paranoia and did not endorse any delusions. Patient does have a significant history of substance abuse and was counseled on abstaining from all substances including alcohol and marijuana. Patient was offered however declined inpatient substance-abuse rehab. Patient elected to do outpatient substance use treatment program through [facility]. Patient was also counseled on the medications and need for regular compliance and was encouraged to follow-up with their outpatient appointment for mental health and also for primary care. Prior to discharge a family meeting will be arranged by medical social consultant to answer any questions and ensure safety upon discharge. Mental status exam: General Appearance: Patient appears to be thin, stated age is alert, directable, and cooperative. Patient is in no acute distress and has improved hygiene and grooming Behavior: Patient is calmly seated without any agitated behavior. Speech: Patient's speech is fluent and nonpressured. Mood/Affect: Patient reports their mood is "good", affect is congruent and euthymic. Suicidality/Homicidality: Patient denies having any suicidal or homicidal ideation intent or plan. Perceptions: Patient denies any auditory or visual hallucinations. Though content/process: There is no evidence of any delusional thought content and thought process is linear and goal-directed. Memory and concentration: AOX3, grossly intact for the purposes of this session. Can spell "WORLD" backwards correctly. Judgment and insight: chronically poor, however has improved with guarded prognosis Impression: Major depressive disorder, recurrent, severe without psychotic features Anxiety disorder unspecified Personality disorder unspecified, rule out borderline personality disorder Benzodiazepine abuse Cannabis use disorder Nicotine dependence Plan: -Continue with discharge today as patient has improved and stabilized psychiatrically and is not currently an imminent threat to herself and/or others. Patient will remain at chronically elevated risk for harm to self and/or others due to her impulsivity and substance abuse. -Continue medications: Continue with Celexa 30 mg daily for mood/anxiety, Seroquel 25 mg daily at bedtime for mood stabilization/insomnia, Vistaril 25 mg twice a day when necessary for anxiety. -Patient was counseled on the need for medication compliance and appropriate follow-up at mental health and also primary care for medical issues. Patient verbalized understanding and agreed. -Social work to arrange for and conduct family meeting to ensure safety upon discharge and answer any questions/concerns. Social work also to arrange for patients follow up appointments with [facility] for psychiatric care along with follow up with primary care provider. -Patient counseled on abstaining from recreational drugs and marijuana and alcohol. Was informed/educated on the adverse effects on their physical and mental health. Patient verbally agreed and understood. Patient was offered substance abuse treatment however declined at this time. -Patient was instructed to return to the hospital or seek immediate medical care if their psychiatric or medical symptoms do worsen or reoccur. Allergies Allergy/AdvReac Type Severity Reaction Status Date / Time Latex, Natural Rubber Allergy Unknown Verified 05/28/20 06:46 Laboratory Results WBC 3.9 k/uL (3.8-10.6) 05/28/20 08:08 RBC 4.30 m/uL (3.80-5.40) 05/28/20 08:08 Hgb 13.1 gm/dL (11.4-16.0) 05/28/20 08:08 Hct 39.3 % (34.0-46.0) 05/28/20 08:08 MCV 91.4 fL (80.0-100.0) 05/28/20 08:08 MCH 30.6 pg (25.0-35.0) 05/28/20 08:08 MCHC 33.4 g/dL (31.0-37.0) 05/28/20 08:08 RDW 12.1 % (11.5-15.5) 05/28/20 08:08 Plt Count 204 k/uL (150-450) 05/28/20 08:08 Neutrophils % 51 % 05/28/20 08:08 Lymphocytes % 35 % 05/28/20 08:08 Monocytes % 8 % 05/28/20 08:08 Eosinophils % 3 % 05/28/20 08:08 Basophils % 1 % 05/28/20 08:08 Neutrophils # 2.0 k/uL (1.3-7.7) 05/28/20 08:08 Lymphocytes # 1.4 k/uL (1.0-4.8) 05/28/20 08:08 Monocytes # 0.3 k/uL (0-1.0) 05/28/20 08:08 Eosinophils # 0.1 k/uL (0-0.7) 05/28/20 08:08 Basophils # 0.0 k/uL (0-0.2) 05/28/20 08:08 Sodium 141 mmol/L (137-145) 05/28/20 08:08 Potassium 3.9 mmol/L (3.5-5.1) 05/28/20 08:08 Chloride 104 mmol/L (98-107) 05/28/20 08:08 Carbon Dioxide 29 mmol/L (22-30) 05/28/20 08:08 Anion Gap 8 mmol/L 05/28/20 08:08 BUN 13 mg/dL (7-17) 05/28/20 08:08 Creatinine 0.90 mg/dL (0.52-1.04) 05/28/20 08:08 Est GFR (CKD-EPI)AfAm >90 (>60 ml/min/1.73 sqM) 05/28/20 08:08 Est GFR (CKD-EPI)NonAf >90 (>60 ml/min/1.73 sqM) 05/28/20 08:08 Glucose 81 mg/dL (74-99) 05/28/20 08:[address] Glu mg/dL 94 05/28/20 08:08 Hemoglobin A1c 4.9 % (4.0-6.0) 05/28/20 08:08 Calcium 9.4 mg/dL (8.4-10.2) 05/28/20 08:08 Total Bilirubin 0.5 mg/dL (0.2-1.3) 05/28/20 08:08 Conjugated Bilirubin 0.0 mg/dL (0.0-0.3) 05/28/20 08:08 Unconjugated Bilirubin 0.3 mg/dL (0.0-1.1) 05/28/20 08:08 Delta Bilirubin 0.2 mg/dL (0.0-0.2) 05/28/20 08:08 AST 25 U/L (14-36) 05/28/20 08:08 ALT 13 U/L (4-34) 05/28/20 08:08 Alkaline Phosphatase 54 U/L (38-126) 05/28/20 08:08 Total Protein 7.3 g/dL (6.3-8.2) 05/28/20 08:08 Albumin 4.7 g/dL (3.5-5.0) 05/28/20 08:08 Triglycerides 105 mg/dL (<150) 05/28/20 08:08 Cholesterol 154 mg/dL (<200) 05/28/20 08:08 LDL Cholesterol, Calc 92 mg/dL (0-99) 05/28/20 08:08 HDL Cholesterol 41 mg/dL (40-60) 05/28/20 08:08 TSH 2.630 mIU/L (0.465-4.680) 05/28/20 08:08 Urine Opiates Screen Not Detected (NotDetected) 05/28/20 04:12 Ur Oxycodone Screen Not Detected (NotDetected) 05/28/20 04:12 Urine Methadone Screen Not Detected (NotDetected) 05/28/20 04:12 Ur Propoxyphene Screen Not Detected (NotDetected) 05/28/20 04:12 Ur Barbiturates Screen Not Detected (NotDetected) 05/28/20 04:12 U Tricyclic Antidepress Not Detected (NotDetected) 05/28/20 04:12 Ur Phencyclidine Scrn Not Detected (NotDetected) 05/28/20 04:12 Ur Amphetamines Screen Not Detected (NotDetected) 05/28/20 04:12 U Methamphetamines Scrn Not Detected (NotDetected) 05/28/20 04:12 U Benzodiazepines Scrn Detected (NotDetected) H 05/28/20 04:12 Urine Cocaine Screen Not Detected (NotDetected) 05/28/20 04:12 U Marijuana (THC) Screen Detected (NotDetected) H 05/28/20 04:12 Vital Signs Temp 98.1 F 06/02/20 06:20 Pulse 58 L 06/02/20 06:20 Resp 12 06/02/20 06:20 BP 99/57 06/02/20 06:20 Pulse Ox 100 06/01/20 06:40 Patient Condition at Discharge: Stable Plan - Discharge Summary New Discharge Prescriptions: New Bacitracin Zinc Oint 1 applic TOPICAL DAILY #1 applic Citalopram Hydrobromide [CeleXA] 30 mg PO DAILY 30 Days tab Nicotine 14Mg/24Hr Patch [Habitrol] 1 patch TRANSDERM DAILY 14 Days patch QUEtiapine [SEROquel] 25 mg PO HS 30 Days tab Acetaminophen Tab [Tylenol] 650 mg PO Q4HR PRN tab PRN Reason: Pain/Discomfort hydrOXYzine pamoate [Vistaril] 25 mg PO BID PRN 30 Days cap PRN Reason: Anxiety Discontinued traZODone HCL [Desyrel] 50 mg PO HS 28 Days tab Sertraline [Zoloft] 100 mg PO DAILY OLANZapine [ZyPREXA] 10 mg PO HS Discharge Medication List Acetaminophen Tab [Tylenol] 650 mg PO Q4HR PRN tab 06/03/20 [Rx] Bacitracin Zinc Oint 1 applic TOPICAL DAILY #1 applic 06/03/20 [Rx] Citalopram Hydrobromide [CeleXA] 30 mg PO DAILY 30 Days tab 06/03/20 [Rx] Nicotine 14Mg/24Hr Patch [Habitrol] 1 patch TRANSDERM DAILY 14 Days patch 06/03/20 [Rx] QUEtiapine [SEROquel] 25 mg PO HS 30 Days tab 06/03/20 [Rx] hydrOXYzine pamoate [Vistaril] 25 mg PO BID PRN 30 Days cap 06/03/20 [Rx] Follow up Appointment(s)/Referral(s): [facility] - 06/05/20 11:00 am (06-05-20 @ 11:00 with Jet Shane at [facility] office 06-09-20 @ 12:00 with JANICE Newman at [facility] office) Nadja Goldberg MD [Primary Care Provider] - 1-2 days Activity/Diet/Wound Care/Special Instructions: Activity and diet as tolerated. Avoid the use of street drugs and alcohol. Take all medications as prescribed. When you are in need of refills on your medications please contact your medical provider and/or outpatient psychiatrist to have this done. Please go to scheduled outpatient appointment for aftercare treatment. If symptoms return or become worse, call the crisis line at and/or go to the nearest emergency room for evaluation. Discharge Disposition: HOME SELF-CARE
== END 2020-06-03 12:00 | disposition home or self-care (01) | DRG 885 ==
LOC: EC 02:47 → 3MHU 06:40
PROVIDERS: ADMIT Psychiatry & Neurology Psychiatry; ATTEND Psychiatry & Neurology Psychiatry
DX: F33.2 Major depressive disorder, recurrent severe without psychotic features (principal); R45.851 Suicidal ideations; F13.10 Sedative, hypnotic or anxiolytic abuse, uncomplicated; F60.9 Personality disorder, unspecified; F41.9 Anxiety disorder, unspecified; F12.10 Cannabis abuse, uncomplicated; G47.00 Insomnia, unspecified; R45.87 Impulsiveness; S41.111D Laceration without foreign body of right upper arm, subsequent encounter; Z91.5 Personal history of self-harm; F17.210 Nicotine dependence, cigarettes, uncomplicated; Z79.899 Other long term (current) drug therapy; Z71.51 Drug abuse counseling and surveillance of drug abuser; Z90.49 Acquired absence of other specified parts of digestive tract; Z98.890 Other specified postprocedural states; Z90.89 Acquired absence of other organs; Z91.040 Latex allergy status; Z81.8 Family history of other mental and behavioral disorders
CPT/HCPCS: 80053; 80061; 80306; 82075; 82248; 83036; 84443; 85025; 99285

== ENCOUNTER 2020-08-24 03:16 | Emergency (ER) | payer OTHER ==
[2020-08-24 03:34] VITALS: BP 111/72; PULSE 99; RESP 18; TEMP 98.9
--- NOTE | 2020-08-24 03:46 | ED ---
Psych HPI - General Chief Complaint: Psychiatric Symptoms Stated Complaint: Petition Time Seen by Provider: 08/24/20 03:30 Source: police, RN notes reviewed, old records reviewed Mode of arrival: ambulatory Limitations: no limitations - History of Present Illness Initial Comments: This is a 20-year-old female she presents today for evaluation of psychiatric illness. Patient's brought in by PD under petition for psychiatric evaluation and treatment. Patient has known history of psychiatric illness. Persistent issue of self-harm mutilation. Patient does have recent hospital inpatient admission about 3 months ago for similar complaints patient's very angry and argumentative on both history taking as well as evaluation MD Complaint: suicidal ideation, feels depressed, other (Anger reaction) -: unknown Associated Psychiatric Symptoms: depression, suicidal ideation History of same: Yes Quality: constant, getting worse Improves With: none Worsens With: none Context: not taking psychiatric medications Treatments Prior to Arrival: placed on mental health hold If Self Harm: admits thoughts of self harm - Related Data Previous Rx's Medication Instructions Recorded Acetaminophen Tab [Tylenol] 650 mg PO Q4HR PRN tab 06/03/20 Bacitracin Zinc Oint 1 applic TOPICAL DAILY #1 applic 06/03/20 Citalopram Hydrobromide [CeleXA] 30 mg PO DAILY 30 Days tab 06/03/20 Nicotine 14Mg/24Hr Patch [Habitrol] 1 patch TRANSDERM DAILY 14 Days 06/03/20 patch QUEtiapine [SEROquel] 25 mg PO HS 30 Days tab 06/03/20 hydrOXYzine pamoate [Vistaril] 25 mg PO BID PRN 30 Days cap 06/03/20 Allergies Allergy/AdvReac Type Severity Reaction Status Date / Time Latex, Natural Rubber Allergy Unknown Verified 08/24/20 03:39 Review of Systems ROS Statement: Those systems with pertinent positive or pertinent negative responses have been documented in the HPI. ROS Other: All systems not noted in ROS Statement are negative. Past Medical History Past Medical History: No Reported History Additional Past Medical History / Comment(s): LIVER ENZYMES ELEV. ON PO AB FOR ECOLI IN URINE. CHOLECYSTITIS. History of Any Multi-Drug Resistant Organisms: None Reported Past Surgical History: Adenoidectomy, Cholecystectomy, Tonsillectomy Past Anesthesia/Blood Transfusion Reactions: No Reported Reaction Past Psychological History: Anxiety, Depression Smoking Status: Never smoker Past Alcohol Use History: Occasional Past Drug Use History: Marijuana - Past Family History Mother Family Medical History: No Reported History Father History Unknown: Yes Family Medical History: Unable to Obtain General Exam - General Exam Comments Initial Comments: Patient has multiple superficial self cutting in different stages both upper and lower extremities Limitations: no limitations General appearance: alert, in no apparent distress Head exam: Present: atraumatic, normocephalic, normal inspection Eye exam: Present: normal appearance, PERRL, EOMI. Absent: scleral icterus, conjunctival injection, periorbital swelling ENT exam: Present: normal exam, mucous membranes moist Neck exam: Present: normal inspection. Absent: tenderness, meningismus, lymphadenopathy Respiratory exam: Present: normal lung sounds bilaterally. Absent: respiratory distress, wheezes, rales, rhonchi, stridor Cardiovascular Exam: Present: regular rate, normal rhythm, normal heart sounds. Absent: systolic murmur, diastolic murmur, rubs, gallop, clicks GI/Abdominal exam: Present: soft, normal bowel sounds. Absent: distended, tenderness, guarding, rebound, rigid Extremities exam: Present: normal inspection, full ROM, normal capillary refill. Absent: tenderness, pedal edema, joint swelling, calf tenderness Back exam: Present: normal inspection Neurological exam: Present: alert, oriented X3, CN II-XII intact Psychiatric exam: Present: normal affect, normal mood Skin exam: Present: warm, dry, intact, normal color. Absent: rash Course Vital Signs 08/24/20 03:26 Temperature 98.9 F Pulse Rate 99 Respiratory 18 Rate Blood Pressure 111/72 O2 Sat by Pulse 100 Oximetry - Reevaluation(s) Reevaluation #1: 08/24/20 04:04 Medical records reviewed 08/24/20 04:04 Patient clear for psychiatric evaluation and treatment Medical Decision Making - Medical Decision Making 20 female to the ER for evaluation, patient is here for presentation of psychiatric illness. Patient evaluated does follow [facility] and can be discharged home - Lab Data Result diagrams: 08/24/20 04:13 08/24/20 04:13 Lab Results 08/24/20 08/24/20 08/24/20 Range/Units 03:51 04:13 04:13 WBC 5.9 (3.8-10.6) k/uL RBC 4.29 (3.80-5.40) m/uL Hgb 13.1 (11.4-16.0) gm/dL Hct 37.2 (34.0-46.0) % MCV 86.7 (80.0-100.0) fL MCH 30.5 (25.0-35.0) pg MCHC 35.1 (31.0-37.0) g/dL RDW 12.6 (11.5-15.5) % Plt Count 171 (150-450) k/uL MPV 8.5 Neutrophils % 53 % Lymphocytes % 38 % Monocytes % 5 % Eosinophils % 2 % Basophils % 1 % Neutrophils # 3.1 (1.3-7.7) k/uL Lymphocytes # 2.2 (1.0-4.8) k/uL Monocytes # 0.3 (0-1.0) k/uL Eosinophils # 0.1 (0-0.7) k/uL Basophils # 0.0 (0-0.2) k/uL Sodium 138 (137-145) mmol/L Potassium 4.0 (3.5-5.1) mmol/L Chloride 106 (98-107) mmol/L Carbon Dioxide 27 (22-30) mmol/L Anion Gap 5 mmol/L BUN 8 (7-17) mg/dL Creatinine 0.67 (0.52-1.04) mg/dL Est GFR (CKD-EPI)AfAm >90 (>60 ml/min/1.73 sqM) Est GFR (CKD-EPI)NonAf >90 (>60 ml/min/1.73 sqM) Glucose 96 (74-99) mg/dL Calcium 9.7 (8.4-10.2) mg/dL Total Bilirubin 0.3 (0.2-1.3) mg/dL AST 20 (14-36) U/L ALT 10 (4-34) U/L Alkaline Phosphatase 46 (38-126) U/L Total Protein 7.1 (6.3-8.2) g/dL Albumin 4.4 (3.5-5.0) g/dL Urine Opiates Screen Not Detected (NotDetected) Ur Oxycodone Screen Not Detected (NotDetected) Urine Methadone Screen Not Detected (NotDetected) Ur Propoxyphene Screen Not Detected (NotDetected) Ur Barbiturates Screen Not Detected (NotDetected) U Tricyclic Antidepress Not Detected (NotDetected) Ur Phencyclidine Scrn Not Detected (NotDetected) Ur Amphetamines Screen Not Detected (NotDetected) U Methamphetamines Scrn Not Detected (NotDetected) U Benzodiazepines Scrn Not Detected (NotDetected) Urine Cocaine Screen Not Detected (NotDetected) U Marijuana (THC) Screen Detected H (NotDetected) Coronavirus (PCR) (Not Detectd) 08/24/20 Range/Units 04:23 WBC (3.8-10.6) k/uL RBC (3.80-5.40) m/uL Hgb (11.4-16.0) gm/dL Hct (34.0-46.0) % MCV (80.0-100.0) fL MCH (25.0-35.0) pg MCHC (31.0-37.0) g/dL RDW (11.5-15.5) % Plt Count (150-450) k/uL MPV Neutrophils % % Lymphocytes % % Monocytes % % Eosinophils % % Basophils % % Neutrophils # (1.3-7.7) k/uL Lymphocytes # (1.0-4.8) k/uL Monocytes # (0-1.0) k/uL Eosinophils # (0-0.7) k/uL Basophils # (0-0.2) k/uL Sodium (137-145) mmol/L Potassium (3.5-5.1) mmol/L Chloride (98-107) mmol/L Carbon Dioxide (22-30) mmol/L Anion Gap mmol/L BUN (7-17) mg/dL Creatinine (0.52-1.04) mg/dL Est GFR (CKD-EPI)AfAm (>60 ml/min/1.73 sqM) Est GFR (CKD-EPI)NonAf (>60 ml/min/1.73 sqM) Glucose (74-99) mg/dL Calcium (8.4-10.2) mg/dL Total Bilirubin (0.2-1.3) mg/dL AST (14-36) U/L ALT (4-34) U/L Alkaline Phosphatase (38-126) U/L Total Protein (6.3-8.2) g/dL Albumin (3.5-5.0) g/dL Urine Opiates Screen (NotDetected) Ur Oxycodone Screen (NotDetected) Urine Methadone Screen (NotDetected) Ur Propoxyphene Screen (NotDetected) Ur Barbiturates Screen (NotDetected) U Tricyclic Antidepress (NotDetected) Ur Phencyclidine Scrn (NotDetected) Ur Amphetamines Screen (NotDetected) U Methamphetamines Scrn (NotDetected) U Benzodiazepines Scrn (NotDetected) Urine Cocaine Screen (NotDetected) U Marijuana (THC) Screen (NotDetected) Coronavirus (PCR) Not Detected (Not Detectd) Disposition Clinical Impression: Major depressive disorder, recurrent severe without psychotic features Disposition: HOME SELF-CARE Condition: Fair Instructions (If sedation given, give patient instructions): Depression (ED) Is patient prescribed a controlled substance at d/c from ED?: No Referrals: Nadja Goldberg MD [Primary Care Provider] - 1-2 days
[2020-08-24 04:07] LABS: Amphetamine Screen,Urine Not Detected (NotDetected); Barbiturate Screen,Urine Not Detected (NotDetected); Benzodiazepines Screen,Urine Not Detected (NotDetected); Cocaine Screen,Urine Not Detected (NotDetected); Methadone Screen, Urine Not Detected (NotDetected); Opiate Screen,Urine Not Detected (NotDetected); Oxycodone Screen, Urine Not Detected (NotDetected); Phencyclidine Screen,Urine Not Detected (NotDetected); Tricyclic Antidepressant,Urine Not Detected (NotDetected); Urn Cannabinoid Scrn Detected (NotDetected)
[2020-08-24 04:35] LABS: ALT 10 U/L (4-34); AST 20 U/L (14-36); African American GFR (CKD) >90 (>60 ml/min/1.73 sqM); Albumin 4.4 g/dL (3.5-5.0); Alkaline Phosphatase 46 U/L (38-126); Anion Gap 5 mmol/L; Blood Urea Nitrogen 8 mg/dL (7-17); Calcium 9.7 mg/dL (8.4-10.2); Carbon Dioxide 27 mmol/L (22-30); Chloride 106 mmol/L (98-107); Glucose 96 mg/dL (74-99); Non-African American GFR(CKD) >90 (>60 ml/min/1.73 sqM); Sodium 138 mmol/L (137-145); Total Bilirubin 0.3 mg/dL (0.2-1.3); Total Protein 7.1 g/dL (6.3-8.2)
[2020-08-24 04:49] LABS: Basophils % (A) 1 %; Eosinophils # (A) 0.1 k/uL (0-0.7); Eosinophils % (A) 2 %; HCT 37.2 % (34.0-46.0); HGB 13.1 gm/dL (11.4-16.0); Lymphocytes # (A) 2.2 k/uL (1.0-4.8); Lymphocytes % (A) 38 %; MCH 30.5 pg (25.0-35.0); MCHC 35.1 g/dL (31.0-37.0); MCV 86.7 fL (80.0-100.0); Mean Platelet Volume 8.5; Monocytes # (A) 0.3 k/uL (0-1.0); Monocytes % (A) 5 %; Neutrophils # (A) 3.1 k/uL (1.3-7.7); Neutrophils % (A) 53 %; Platelet Count 171 k/uL (150-450); RBC 4.29 m/uL (3.80-5.40); RDW 12.6 % (11.5-15.5); WBC 5.9 k/uL (3.8-10.6)
== END 2020-08-24 05:18 | disposition home or self-care (01) ==
LOC: EC 03:16
DX: F33.2 Major depressive disorder, recurrent severe without psychotic features (principal); S61.412A Laceration without foreign body of left hand, initial encounter; S61.411A Laceration without foreign body of right hand, initial encounter; S81.812A Laceration without foreign body, left lower leg, initial encounter; S81.811A Laceration without foreign body, right lower leg, initial encounter; Z91.040 Latex allergy status; Z20.822 Contact with and (suspected) exposure to COVID-19; Z90.49 Acquired absence of other specified parts of digestive tract; X78.9XXA Intentional self-harm by unspecified sharp object, initial encounter; Y28.9XXA Contact with unspecified sharp object, undetermined intent, initial encounter
CPT/HCPCS: 36415; 80053; 80306; 82075; 85025; 87635; 99285

== ENCOUNTER 2020-12-24 01:50 | Inpatient (IN) | payer MEDICAID, OTHER ==
--- NOTE | 2020-12-24 01:52 | ED ---
Psych HPI - General Stated Complaint: Mental Health Time Seen by Provider: 12/24/20 01:50 Source: RN notes reviewed, old records reviewed Limitations: no limitations - History of Present Illness Initial Comments: This is a 20-year-old female DF for evaluation she presents today for suicidal thoughts psychiatric issues.patient with hallucinations and noncompliant with medications. [facility] is aware patient prior to arrival. Patient is brought in under petition MD Complaint: suicidal ideation, feels depressed, altered mental status -: unknown Associated Psychiatric Symptoms: racing thoughts History of same: Yes Quality: getting worse Improves With: none Worsens With: none Context: not taking psychiatric medications, significant life stressor Associated Symptoms: denies other symptoms Treatments Prior to Arrival: placed on mental health hold If Self Harm: admits thoughts of self harm - Related Data Previous Rx's Medication Instructions Recorded Acetaminophen Tab [Tylenol] 650 mg PO Q4HR PRN tab 06/03/20 Bacitracin Zinc Oint 1 applic TOPICAL DAILY #1 applic 06/03/20 Citalopram Hydrobromide [CeleXA] 30 mg PO DAILY 30 Days tab 06/03/20 Nicotine 14Mg/24Hr Patch [Habitrol] 1 patch TRANSDERM DAILY 14 Days 06/03/20 patch QUEtiapine [SEROquel] 25 mg PO HS 30 Days tab 06/03/20 hydrOXYzine pamoate [Vistaril] 25 mg PO BID PRN 30 Days cap 06/03/20 Allergies Allergy/AdvReac Type Severity Reaction Status Date / Time Latex, Natural Rubber Allergy Unknown Verified 08/24/20 03:39 Review of Systems ROS Statement: Those systems with pertinent positive or pertinent negative responses have been documented in the HPI. ROS Other: All systems not noted in ROS Statement are negative. Past Medical History Past Medical History: No Reported History Additional Past Medical History / Comment(s): LIVER ENZYMES ELEV. ON PO AB FOR ECOLI IN URINE. CHOLECYSTITIS. History of Any Multi-Drug Resistant Organisms: None Reported Past Surgical History: Adenoidectomy, Cholecystectomy, Tonsillectomy Past Anesthesia/Blood Transfusion Reactions: No Reported Reaction Past Psychological History: Anxiety, Depression Smoking Status: Never smoker Past Alcohol Use History: Occasional Past Drug Use History: Marijuana - Past Family History Mother Family Medical History: No Reported History Father History Unknown: Yes Family Medical History: Unable to Obtain General Exam General appearance: alert, in no apparent distress Head exam: Present: atraumatic, normocephalic, normal inspection Eye exam: Present: normal appearance, PERRL, EOMI. Absent: scleral icterus, conjunctival injection, periorbital swelling ENT exam: Present: normal exam, mucous membranes moist Neck exam: Present: normal inspection. Absent: tenderness, meningismus, lymphadenopathy Respiratory exam: Present: normal lung sounds bilaterally. Absent: respiratory distress, wheezes, rales, rhonchi, stridor Cardiovascular Exam: Present: regular rate, normal rhythm, normal heart sounds. Absent: systolic murmur, diastolic murmur, rubs, gallop, clicks GI/Abdominal exam: Present: soft, normal bowel sounds. Absent: distended, tenderness, guarding, rebound, rigid Extremities exam: Present: normal inspection, full ROM, normal capillary refill. Absent: tenderness, pedal edema, joint swelling, calf tenderness Back exam: Present: normal inspection Neurological exam: Present: alert, oriented X3, CN II-XII intact Psychiatric exam: Present: normal affect, normal mood Skin exam: Present: warm, dry, intact, normal color. Absent: rash Course Vital Signs 12/24/20 02:06 Temperature 98.2 F Pulse Rate 75 Respiratory 16 Rate Blood Pressure 109/57 O2 Sat by Pulse 97 Oximetry - Reevaluation(s) Reevaluation #1: 12/24/20 04:56 Medical record is reviewed Reevaluation #2: 12/24/20 04:56 Medical clear for psychiatric evaluation Medical Decision Making - Medical Decision Making 1 female DF for evaluation patient presents today for evaluation regards to psychiatric illness will admit psychiatric unit for evaluation treatment Disposition Clinical Impression: Acute anxiety, Depression, Suicidal ideation, Major depressive disorder, recurrent episode, Alcohol use disorder, Nicotine dependence, Cannabis abuse, Personality disorder, unspecified Disposition: TRANSFER TO PSYCH HOSP/UNIT Condition: Fair Is patient prescribed a controlled substance at d/c from ED?: No Referrals: Nadja Goldberg MD [Primary Care Provider] - 1-2 days
[2020-12-24 05:11] LABS: Amorphous Sediment,Urine Rare /hpf; Appearance,Urine Clear (Clear); Bilirubin,Urine Negative (Negative); Blood,Urine Trace (Negative); Color,Urine Yellow; Glucose,Urine (UA) Negative (Negative); Ketones,Urine 1+ (Negative); Leukocyte Esterase,Urine Moderate (Negative); Mucus,Urine Many /hpf; Nitrite,Urine Negative (Negative); Protein,Urine Trace (Negative); RBC,Urine 2 /hpf (0-5); Specific Gravity,Urine 1.016 (1.001-1.035); Squamous Epithelial Cell,Urine 2 /hpf (0-4); WBC,Urine 36 /hpf (0-5)
[2020-12-24 05:12] LABS: Cocaine Screen,Urine Not Detected (NotDetected); Phencyclidine Screen,Urine Not Detected (NotDetected); Urn Cannabinoid Scrn Detected (NotDetected)
[2020-12-24 05:13] LABS: Amphetamine Screen,Urine Not Detected (NotDetected); Barbiturate Screen,Urine Not Detected (NotDetected); Benzodiazepines Screen,Urine Not Detected (NotDetected); Methadone Screen, Urine Not Detected (NotDetected); Opiate Screen,Urine Not Detected (NotDetected); Oxycodone Screen, Urine Not Detected (NotDetected); Tricyclic Antidepressant,Urine Not Detected (NotDetected)
[2020-12-24] MEDS ORDERED: LORazepam 1 MG TAB PO PRN (06:08)
[2020-12-24] MEDS ORDERED: LORazepam 2 MG/ML INJ IM PRN (06:08)
[2020-12-24] MEDS ORDERED: ACETAMINOPHEN TAB 325 MG TAB PO PRN (06:08)
[2020-12-24] MEDS ORDERED: MAG HYDROX/AL HYDROX/SIMETH 30 ML CUP PO PRN (06:08)
[2020-12-24] MEDS ORDERED: MAGNESIUM HYDROXIDE 2,400 MG/10 ML CUP PO PRN (06:08)
[2020-12-24] MEDS ORDERED: HALOPERIDOL LACTATE 5 MG/ML 1 ML VIAL IM PRN (06:08)
[2020-12-24 07:27] LABS: Basophils % (A) 0 %; Eosinophils % (A) 0 %; HCT 39.1 % (34.0-46.0); HGB 13.1 gm/dL (11.4-16.0); Lymphocytes # (A) 0.6 k/uL (1.0-4.8); Lymphocytes % (A) 9 %; MCH 29.7 pg (25.0-35.0); MCHC 33.6 g/dL (31.0-37.0); MCV 88.4 fL (80.0-100.0); Mean Platelet Volume 8.1; Monocytes # (A) 0.2 k/uL (0-1.0); Monocytes % (A) 3 %; Neutrophils # (A) 5.8 k/uL (1.3-7.7); Neutrophils % (A) 87 %; Platelet Count 258 k/uL (150-450); RBC 4.42 m/uL (3.80-5.40); RDW 13.1 % (11.5-15.5); WBC 6.7 k/uL (3.8-10.6)
[2020-12-24 08:20] LABS: ALT 11 U/L (4-34); AST 20 U/L (14-36); African American GFR (CKD) >90 (>60 ml/min/1.73 sqM); Albumin 4.9 g/dL (3.5-5.0); Alkaline Phosphatase 60 U/L (38-126); Anion Gap 11 mmol/L; Bilirubin, Delta 0.1 mg/dL (0.0-0.2); Bilirubin,Unconjugated 0.7 mg/dL (0.0-1.1); Blood Urea Nitrogen 10 mg/dL (7-17); Calcium 10.3 mg/dL (8.4-10.2); Carbon Dioxide 26 mmol/L (22-30); Chloride 105 mmol/L (98-107); Glucose 119 mg/dL (74-99); Non-African American GFR(CKD) >90 (>60 ml/min/1.73 sqM); Potassium 3.9 mmol/L (3.5-5.1); Sodium 142 mmol/L (137-145); Total Bilirubin 0.8 mg/dL (0.2-1.3); Total Protein 7.9 g/dL (6.3-8.2)
[2020-12-24 09:12] LABS: Lithium <0.2 mmol/L
[2020-12-24] MEDS: NICOTINE 14MG/24HR PATCH TRANSDERM SCH (09:24)
[2020-12-24] MEDS: ARIPiprazole 5 MG TAB PO SCH (09:24)
[2020-12-24] MEDS: CITALOPRAM HYDROBROMIDE 10 MG TAB PO SCH (09:24)
--- NOTE | 2020-12-24 09:43 | P.HP ---
Psychiatric H&P - . H&P Date: 12/24/20 History & Physical: Allergies Allergy/AdvReac Type Severity Reaction Status Date / Time Latex, Natural Rubber Allergy Unknown Verified 08/24/20 03:39 Vital Signs Temp 98.7 F 12/24/20 07:25 Pulse 111 H 12/24/20 07:25 Resp 16 12/24/20 07:25 BP 130/73 12/24/20 07:25 Pulse Ox 98 12/24/20 07:25 Intake & Output 12/23/20 12/24/20 12/24/20 18:59 06:59 18:59 Weight 49.895 kg Laboratory Last Values WBC 6.7 k/uL (3.8-10.6) 12/24/20 06:49 RBC 4.42 m/uL (3.80-5.40) 12/24/20 06:49 Hgb 13.1 gm/dL (11.4-16.0) 12/24/20 06:49 Hct 39.1 % (34.0-46.0) 12/24/20 06:49 MCV 88.4 fL (80.0-100.0) 12/24/20 06:49 MCH 29.7 pg (25.0-35.0) 12/24/20 06:49 MCHC 33.6 g/dL (31.0-37.0) 12/24/20 06:49 RDW 13.1 % (11.5-15.5) 12/24/20 06:49 Plt Count 258 k/uL (150-450) 12/24/20 06:49 MPV 8.1 12/24/20 06:49 Neutrophils % 87 % 12/24/20 06:49 Lymphocytes % 9 % 12/24/20 06:49 Monocytes % 3 % 12/24/20 06:49 Eosinophils % 0 % 12/24/20 06:49 Basophils % 0 % 12/24/20 06:49 Neutrophils # 5.8 k/uL (1.3-7.7) 12/24/20 06:49 Lymphocytes # 0.6 k/uL (1.0-4.8) L 12/24/20 06:49 Monocytes # 0.2 k/uL (0-1.0) 12/24/20 06:49 Eosinophils # 0.0 k/uL (0-0.7) 12/24/20 06:49 Basophils # 0.0 k/uL (0-0.2) 12/24/20 06:49 Sodium 142 mmol/L (137-145) 12/24/20 06:49 Potassium 3.9 mmol/L (3.5-5.1) 12/24/20 06:49 Chloride 105 mmol/L (98-107) 12/24/20 06:49 Carbon Dioxide 26 mmol/L (22-30) 12/24/20 06:49 Anion Gap 11 mmol/L 12/24/20 06:49 BUN 10 mg/dL (7-17) 12/24/20 06:49 Creatinine 0.62 mg/dL (0.52-1.04) 12/24/20 06:49 Est GFR (CKD-EPI)AfAm >90 (>60 ml/min/1.73 sqM) 12/24/20 06:49 Est GFR (CKD-EPI)NonAf >90 (>60 ml/min/1.73 sqM) 12/24/20 06:49 Glucose 119 mg/dL (74-99) H 12/24/20 06:49 Calcium 10.3 mg/dL (8.4-10.2) H 12/24/20 06:49 Total Bilirubin 0.8 mg/dL (0.2-1.3) 12/24/20 06:49 Conjugated Bilirubin 0.0 mg/dL (0.0-0.3) 12/24/20 06:49 Unconjugated Bilirubin 0.7 mg/dL (0.0-1.1) 12/24/20 06:49 Delta Bilirubin 0.1 mg/dL (0.0-0.2) 12/24/20 06:49 AST 20 U/L (14-36) 12/24/20 06:49 ALT 11 U/L (4-34) 12/24/20 06:49 Alkaline Phosphatase 60 U/L (38-126) 12/24/20 06:49 Total Protein 7.9 g/dL (6.3-8.2) 12/24/20 06:49 Albumin 4.9 g/dL (3.5-5.0) 12/24/20 06:49 TSH 1.750 mIU/L (0.465-4.680) 12/24/20 06:49 Urine Color Yellow 12/24/20 04:22 Urine Appearance Clear (Clear) 12/24/20 04:22 Urine pH 6.0 (5.0-8.0) 12/24/20 04:22 Ur Specific [place] 1.016 (1.001-1.035) 12/24/20 04:22 Urine Protein Trace (Negative) H 12/24/20 04:22 Urine Glucose (UA) Negative (Negative) 12/24/20 04:22 Urine Ketones 1+ (Negative) H 12/24/20 04:22 Urine Blood Trace (Negative) H 12/24/20 04:22 Urine Nitrite Negative (Negative) 12/24/20 04:22 Urine Bilirubin Negative (Negative) 12/24/20 04:22 Urine Urobilinogen 2.0 mg/dL (<2.0) 12/24/20 04:22 Ur Leukocyte Esterase Moderate (Negative) H 12/24/20 04:22 Urine RBC 2 /hpf (0-5) 12/24/20 04:22 Urine WBC 36 /hpf (0-5) H 12/24/20 04:22 Ur Squamous Epith Cells 2 /hpf (0-4) 12/24/20 04:22 Amorphous Sediment Rare /hpf (None) H 12/24/20 04:22 Urine Mucus Many /hpf (None) H 12/24/20 04:22 Urine HCG, Qual Not Detected (Not Detectd) 12/24/20 04:33 Urine Opiates Screen Not Detected (NotDetected) 12/24/20 04:22 Ur Oxycodone Screen Not Detected (NotDetected) 12/24/20 04:22 Urine Methadone Screen Not Detected (NotDetected) 12/24/20 04:22 Ur Propoxyphene Screen Not Detected (NotDetected) 12/24/20 04:22 Ur Barbiturates Screen Not Detected (NotDetected) 12/24/20 04:22 U Tricyclic Antidepress Not Detected (NotDetected) 12/24/20 04:22 Ur Phencyclidine Scrn Not Detected (NotDetected) 12/24/20 04:22 Ur Amphetamines Screen Not Detected (NotDetected) 12/24/20 04:22 U Methamphetamines Scrn Not Detected (NotDetected) 12/24/20 04:22 U Benzodiazepines Scrn Not Detected (NotDetected) 12/24/20 04:22 Singer <0.2 mmol/L 12/24/20 06:49 Urine Cocaine Screen Not Detected (NotDetected) 12/24/20 04:22 U Marijuana (THC) Screen Detected (NotDetected) H 12/24/20 04:22 Coronavirus (PCR) Not Detected (Not Detectd) 12/24/20 04:39 12/24/20 09:34 IDENTIFYING DATA: Patient is a 20-year-old female currently lives with her family friend and has 1 kid and is unemployed/supported by her family. HPI: Patient presented to the hospital yesterday for psychiatric evaluation on a petition from mother who stated that patient has been "hallucinating the past 24 hours, rapid eye movement, talking to herself and talking to people that aren't there". Petition also stated that patient has been "extending friends and mother tacks that she has dreamed but thinks they are real". Patient was seen today wandering the hallways and acting bizarre and inappropriate. Patient was difficult to redirect and appeared to be confused and was attempting to open multiple doors were locked on the unit. She agreed to speak to racebook writer in the office. She had very poor eye contact and was responding to internal stimuli during the interview. She was bizarre and illogical with loose associations. Patient also had a tangential thought process. She spoke about a "person on Facebook sending messages to me" and claims that her brother brought her into the hospital. She spoke about "walking into [facility]wing" and was a very poor historian. She claims that she has been not taking her medications for one and half months and has "not been feeling the same". She states that her sleep has been poor however claims that her mood has been fair and is denying any anxiety at this time. She denies any recent history of cutting however patient had multiple wounds/lacerations in various stages of healing on her arms and legs. She appears to have very poor insight into her condition and poor judgment. Patient also admitted to smoking marijuana daily for her anxiety. Patient admits to smoking cigarettes daily.patient's UDS was positive for THC. PAST PSYCHIATRIC HISTORY: Patient states that she has a history of depression and anxiety. Patient was last hospitalized on the mental health unit in May 2020. Patient claims that she had 1 overdose suicide attempt when she was 12 years old.marily has an extensive history of cutting of her arm. She states that she has been on several different antidepressants in the past PMH:denies ALLERGIES: as per EMR CHEMICAL DEPENDENCY HISTORY: as per HPI FAMILY PSYCHIATRIC/SUBSTANCE USE HISTORY: Claims her grandmother has sc hizophrenia SOCIAL HISTORY: She states that she was raised in [facility] and moved around a lot when she was younger. She claims that she was raised by her mother and her grandparents. 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 she denies any legal history. MENTAL STATUS EXAM: General Appearance: Patient appears to be stated age is alert, difficult to redirect. Responding to internal stimuli. Patient appears to have a depressed affect and appears to have poor grooming and poor hygiene. Behavior: Patient is calmly seated without any agitated behavior.responding to internal stimuli. Bizarre. Speech: Patient's speech is fluent and nonpressured. Mumbled Mood/Affect: Patient reports their mood is "okay", affect is congruent and bizarre Suicidality/Homicidality: Patient denies having any suicidal or homicidal ideation intent or plan. Perceptions: Patient denies any auditory or visual hallucinations. Though content/process: Patient has loose associations, as he logical. Poor historian. The content. Memory and concentration: Patient is oriented to her name only and does not know where she is or today's date. Cannot spell "WORLD" backwards Judgment and insight: poor/impulsive STRENGTHS/WEAKNESSES: strength is that patient is resilient, weaknesses that patient has impulsive tendencies d/t chronic mental illness. INTELLECT: Below average IMPRESSIONS: Psychosis unspecified, rule out secondary to cannabis use History of Major depressive disorder History of Anxiety disorder Cannabis use disorder Personality disorder unspecified nicotine dependence PLAN: -Patient is admitted under involuntary status to MHU for stabilization of psychiatric symptoms and safety. Patient did not sign medication consent or adult voluntary form and is placed in patient's chart. Will file second clinical certificate and petition to the courts. -Medications : patient is agreeable to re-start her home doses of Celexa 30 mg daily for mood/anxiety, Abilify 5 mg daily for mood stabilization/psychosis. Singer 300 mg daily at bedtime for mood stabilization. -Haldol and Ativan IM and PO prn for agitation. -Patient was counselled on substance abuse and desired to cut back on use -Patient was informed of the risks, benefits and side effects of the medication and patient verbally consented to taking the medications. Patient signed med consent form and was placed in chart. -NRT - nicotine patch -SW on board for discharge planning. Encouraged patient to participate in meliue and groups to work on coping skills. We ll await demand for hearing date.
[2020-12-24 11:36] VITALS: BMI 18.8
[2020-12-24] MEDS: PANTOPRAZOLE 40 MG TABLET PO SCH (15:29)
--- NOTE | 2020-12-24 20:36 | CONS ---
CONSULTATION DATE OF SERVICE: 12/24/2020 REASON FOR CONSULTATION: Advice regarding elevated liver enzymes and other medical issues, requested by Psychiatry. HISTORY OF PRESENT ILLNESS: This is a 20-year-old woman with a past history of elevated liver enzymes and as well as UTI with E coli, cholecystitis, cholecystectomy, anxiety, depression, being followed by Dr. Nadja Goldberg in the outpatient setting was admitted for psychosis and other evaluation for further psychiatric issues. There is no history of fever, rigors, chills. No history of headache, loss of consciousness, seizures. No chest pain, abdominal pain, nausea, vomiting, diarrhea, hematochezia or melena at this time. The patient also complains of nausea. PAST MEDICAL HISTORY: Elevated LFTs, cholecystitis, appendectomy, cholecystectomy, history UTI. MEDICATIONS: Home medications are Abilify, lithium, Celexa. Doses reviewed. ALLERGIES: LATEX. FAMILY HISTORY: No history of heart disease or strokes in the family. SOCIAL HISTORY: History of smoking. History of THC. REVIEW OF SYSTEMS: ENT: No diminished vision or hearing. CARDIOVASCULAR: No angina or palpitations. RESPIRATORY: As mentioned earlier. GI: As mentioned earlier. : No dysuria. NERVOUS SYSTEM: No numbness or weakness. ALLERGY/IMMUNOLOGY: No asthma or hayfever. MUSCULOSKELETAL: As mentioned earlier. HEMATOLOGY: No history of anemia. ENDOCRINE: No history of diabetes or hypothyroidism. CONSTITUTIONAL: As mentioned earlier. DERMATOLOGY: Negative. RHEUMATOLOGY: Negative. PSYCHIATRY: As mentioned earlier. PHYSICAL EXAM: GENERAL: Patient is alert and oriented times three. VITAL SIGNS: Pulse 111, blood pressure 130/70, respirations 16, temperature 98.7, pulse ox 98% on room air. HEENT: Conjunctivae normal. Oral mucosa moist. NECK: No jugular venous distention. No carotid bruits. No lymph node enlargement. RESPIRATORY: Breath sounds diminished at the bases. No rhonchi, no crackles. HEART: S1 and S2, muffled. No S3 or S4. ABDOMEN: Soft, no tenderness. No masses palpable. EXTREMITIES: No edema, no swelling. NERVOUS: Higher functions as mentioned earlier. Moves all four limbs. No focal motor or sensory deficits. LYMPHATICS: No lymph nodes palpable in the neck or axillae. SKIN: No rashes. JOINTS: No active deforming arthropathy. LABS: CBC within normal. Lymphocytes are 0.6. Otherwise, calcium is 10.3. UA shows possible UTI. THC positive. ASSESSMENT: 1. Possible acute urinary tract infection present on admission. 2. Mild lymphopenia. 3. Mild hypercalcemia, possibly secondary to dehydration. 4. Possible psychosis. 5. History of nicotine dependence. 6. History of THC. 7. History of cholecystitis. 8. Elevated liver enzymes. 9. History of E-coli urinary tract infection. 10.History of anxiety and depression. 11.FULL CODE. 12.Mild protein calorie malnutrition. RECOMMENDATIONS AND DISCUSSION: This is a 20-year-old woman who presented with multiple complex medical issues. As mentioned, I would recommend continue the current management and continue symptomatic treatment. I will be happy to review any abnormal labs. Recommend hydration and repeat CBC and BMP to ensure normalcy. Otherwise, I would also recommend a short course of empiric antibiotics as well. The patient may be asked to follow up with primary physician closely after discharge. Thank you Dr. Juarez for letting us participate in the care of this patient. MMADDISONL / IJN: [id number] /
[2020-12-25] MEDS: SULFAMETHOX-TMP 800-160MG 1 EACH TAB PO SCH ×3 (05:57→22:12)
[2020-12-25] MEDS: LITHIUM CARBONATE 300 MG CAP PO SCH ×2 (05:57→22:12)
[2020-12-25 08:06] LABS: Basophils % (A) 0 %; Eosinophils % (A) 0 %; HCT 37.3 % (34.0-46.0); HGB 12.4 gm/dL (11.4-16.0); Lymphocytes % (A) 20 %; MCH 29.1 pg (25.0-35.0); MCHC 33.2 g/dL (31.0-37.0); MCV 87.6 fL (80.0-100.0); Monocytes # (A) 0.2 k/uL (0-1.0); Monocytes % (A) 4 %; Neutrophils # (A) 3.8 k/uL (1.3-7.7); Neutrophils % (A) 74 %; Platelet Count 236 k/uL (150-450); RBC 4.25 m/uL (3.80-5.40); RDW 13.5 % (11.5-15.5); WBC 5.2 k/uL (3.8-10.6)
[2020-12-25 08:27] LABS: African American GFR (CKD) >90 (>60 ml/min/1.73 sqM); Anion Gap 11 mmol/L; Blood Urea Nitrogen 14 mg/dL (7-17); Calcium 9.9 mg/dL (8.4-10.2); Carbon Dioxide 24 mmol/L (22-30); Chloride 104 mmol/L (98-107); Cholesterol 153 mg/dL (<200); Glucose 103 mg/dL (74-99); HDL Cholesterol 39 mg/dL (40-60); LDL Cholesterol,Calculated 103 mg/dL (0-99); Non-African American GFR(CKD) >90 (>60 ml/min/1.73 sqM); Potassium 3.9 mmol/L (3.5-5.1); Sodium 139 mmol/L (137-145); Triglycerides 54 mg/dL (<150)
[2020-12-25] MEDS: ARIPiprazole 5 MG TAB PO SCH (09:12)
[2020-12-25] MEDS: CITALOPRAM HYDROBROMIDE 10 MG TAB PO SCH (09:12)
[2020-12-25] MEDS: NICOTINE 14MG/24HR PATCH TRANSDERM SCH (09:12)
[2020-12-25] MEDS: PANTOPRAZOLE 40 MG TABLET PO SCH (09:12)
--- NOTE | 2020-12-25 09:35 | P.PN ---
Progress Note - Text Progress Note Date: 12/25/20 Interval History: Patient was seen wandering the hallways and was directable and agreeable to yani ponce with travel writer in the office. Patient appears to have mild improvement in her hygiene and grooming today. She appeared to be less confused and less bizarre/psychotic during initial presentation. She was fairly concrete and withdrawn during conversation. She has poor insight into her condition and spoke about smoking marijuana prior to coming into the hospital. She states that she usually gets it from her cousin. She states that she does not remember much before coming into the hospital. She claims that she does not know today's date but knows the year. She states that she was able to sleep fairly well last night and is framing that her mood and anxiety have been improving. She was tearful initially during conversation and states that "I'm sad he has a mental hospital again". At this time patient denies any suicidal or homical ideations, intent or plan. Patient denies any auditory, visual hallucinations and denies any paranoia or delusions. Patient denies any side effects from the medications and has been compliant with meds. Mental Status Exam: General Appearance: Patient appears to be stated age is alert, difficult to redirect. Patient appears to have a depressed affect and appears to have poor grooming and hygiene. Behavior: Patient is calmly seated without any agitated behavior.not responding to internal stimuli today. Speech: Patient's speech is fluent and nonpressured. Mood/Affect: Patient reports their mood is "ok", affect is congruent and constricted Suicidality/Homicidality: Patient denies having any suicidal or homicidal ideation intent or plan. Perceptions: Patient denies any auditory or visual hallucinations. Though content/process: Patient has more logical thought process and more goal oriented today. Memory and concentration: Alert and oriented 2, she does not know what today's date is. Attention span hasn't been improving. Judgment and insight: poor, improving mildly Assessment Psychosis unspecified, rule out secondary to cannabis use History of Major depressive disorder History of Anxiety disorder Cannabis use disorder Personality disorder unspecified nicotine dependence Plan: -Patient continues to meet criteria for inpatient psychiatric admission for symptom stabilization and safety. Patient has not signed adult voluntary form and medication consent and was placed in patient's chart. -Medications: Increase Celexa to 40 mg daily for mood/anxiety. Continue with Abilify 5 mg daily for mood stabilization/psychosis. Continue lithium 300 mg daily at bedtime for mood stabilization. -When necessary Ativan and Haldol for agitation/aggression. -NRT - nicotine patch -PAT on board for discharge planning. Encouraged the patient to participate in milieu. Patient is currently on an active treatment order until February 2021. Bruna dewitt discharge in 1-2 days
[2020-12-25 16:59] LABS: Hemoglobin A1C 4.6 % (4.0-6.0)
[2020-12-26 06:19] VITALS: BP 110/63; PULSE 71; RESP 15; TEMP 98.5
[2020-12-26] MEDS: NICOTINE 14MG/24HR PATCH TRANSDERM SCH ×2 (08:51→08:55)
[2020-12-26] MEDS: PANTOPRAZOLE 40 MG TABLET PO SCH (08:51)
[2020-12-26] MEDS: ARIPiprazole 5 MG TAB PO SCH (08:52)
[2020-12-26] MEDS: SULFAMETHOX-TMP 800-160MG 1 EACH TAB PO SCH (08:52)
[2020-12-26] MEDS ORDERED: CITALOPRAM HYDROBROMIDE 20 MG TAB PO SCH (09:00)
--- NOTE | 2020-12-26 10:52 | P.DS ---
Providers Date of admission: 12/24/20 06:06 Expected date of discharge: 12/26/20 Attending physician: Nnamdi Juarez MD Consults: 12/24/20 06:08 Consult Physician Routine Consulting Provider: Hugh Washburn Consult Reason/Comments: Medical H and P Do you want consulting provider notified?: Yes, Notify in am Primary care physician: Nadja Goldberg - Discharge Diagnosis(es) (1) Unspecified psychosis Current Visit: Yes Status: Acute Priority: High (2) History of depression Current Visit: Yes Status: Acute Priority: Medium (3) History of anxiety disorder Current Visit: Yes Status: Acute Priority: Medium (4) Cannabis abuse Current Visit: Yes Status: Acute Priority: High (5) Nicotine dependence Current Visit: Yes Status: Acute Priority: Low (6) Borderline personality disorder Current Visit: Yes Status: Acute Priority: Medium Hospital Course: Admission HPI: Admission note was completed by field underwriter "Patient is a 20-year-old female currently lives with her family friend and has 1 kid and is unemployed/supported by her family. Patient presented to the hospital yesterday for psychiatric evaluation on a petition from mother who stated that patient has been "hallucinating the past 24 hours, rapid eye movement, talking to herself and talking to people that aren't there". Petition also stated that patient has been "extending friends and mother tacks that she has dreamed but thinks they are real". Patient was seen today wandering the hallways and acting bizarre and inappropriate. Patient was difficult to redirect and appeared to be confused and was attempting to open multiple doors were locked on the unit. She agreed to speak to field underwriter in the office. She had very poor eye contact and was responding to internal stimuli during the interview. She was bizarre and illo gical with loose associations. Patient also had a tangential thought process. She spoke about a "person on Facebook sending messages to me" and claims that her brother brought her into the hospital. She spoke about "walking into ewing" and was a very poor historian. She claims that she has been not taking her medications for one and half months and has "not been feeling the same". She states that her sleep has been poor however claims that her mood has been fair and is denying any anxiety at this time. She denies any recent history of cutting however patient had multiple wounds/lacerations in various stages of healing on her arms and legs. She appears to have very poor insight into her condition and poor judgment. Patient also admitted to smoking marijuana daily for her anxiety. Patient admits to smoking cigarettes daily.patient's UDS was positive for THC." Hospital course: Upon admission to the unit patient was initially bizarre, responding to internal stimuli and psychotic. Patient was however already on a active treatment order until February 2021. Patient got along well with other patients on the unit and followed unit protocol. Patient was compliant with the medications and denied any side effects throughout hospital course. Patient was started back on her home medications including Abilify 5 mg daily for mood stabilization/psychosis, lithium 300 mg daily at bedtime for mood stabilization. Patient was also restarted back on Celexa however was increased to 40 mg daily for mood/anxiety. Patient spoke of her stressors and engaged in therapy both group and individual. Patient was also seen by medical team for history and physical exam. Throughout the course of the hospitalization patient gradually improved with regards to mood, anxiety, psychosis, sleep and became more future oriented with improved insight and judgment. On the day of discharge patient denied any suicidal or homicidal ideations intent or plan denied any auditory or visual hallucinations. Patient endorsed wanting to live for her child and her future. The patient denied any access to guns or weapons. Patient denied any paranoia and did not endorse any delusions. Patient does have a significant history of substance abuse and was counseled on abstaining from all substances including alcohol and marijuana. It was emphasized that the psychotic episode the patient had was likely due to the marijuana use however patient was minimizing this. Patient was offered however declined inpatient substance-abuse rehab. Patient elected to do outpatient substance use treatment program through [facility]. Patient was also counseled on the medications and need for regular compliance and was encouraged to follow-up with their outpatient appointment for mental health and also for primary care. Prior to discharge a family meeting will be arranged by social work lecturer to answer any questions and ensure safety upon discharge. Mental status exam: General Appearance: Patient appears to be then, stated age is alert, pleasant, and attempts to be cooperative. Patient is in no acute distress and has improved hygiene and grooming Behavior: Patient is calmly seated without any agitated behavior. Speech: Patient's speech is fluent and nonpressured. Mood/Affect: Patient reports their mood is "better", affect is congruent and euthymic. Suicidality/Homicidality: Patient denies having any suicidal or homicidal ideation intent or plan. Perceptions: Patient denies any auditory or visual hallucinations. Though content/process: There is no evidence of any delusional thought content and thought process is linear and goal-directed. more future oriented Memory and concentration: AOX3, grossly intact for the purposes of this session. Can spell "WORLD" backwards correctly. Judgment and insight: chronically poor, however has improved with guarded prognosis Impression: Psychosis unspecified, likely secondary to cannabis abuse History of depression History of anxiety Borderline personality disorder Cannabis abuse Nicotine dependence Plan: -Continue with discharge today as patient has improved and stabilized psychiatrically and is not currently an imminent threat to herself and/or others. Patient will remain at chronically elevated risk for harm to self and/or others due to her impulsivity and substance abuse. -Continue medications: Celexa 40 mg daily for mood/anxiety, Abilify 5 mg daily f rom mood stabilization/psychosis, lithium 300 mg daily at bedtime for mood stabilization. -Patient was counseled on the need for medication compliance and appropriate follow-up at mental health and also primary care for medical issues. Patient verbalized understanding and agreed. -Social work to arrange for and conduct family meeting to ensure safety upon discharge and answer any questions/concerns. Social work also to arrange for patients follow up appointments with [facility] for psychiatric care along with follow up with primary care provider. -Patient counseled on abstaining from recreational drugs and marijuana and alcohol. Was informed/educated on the adverse effects on their physical and mental health. Patient verbally agreed and understood. Patient was offered substance abuse treatment however declined at this time. -Patient was instructed to return to the hospital or seek immediate medical care if their psychiatric or medical symptoms do worsen or reoccur. Allergies Allergy/AdvReac Type Severity Reaction Status Date / Time Latex, Natural Rubber Allergy Unknown Verified 08/24/20 03:39 Laboratory Results WBC 5.2 k/uL (3.8-10.6) 12/25/20 07:45 RBC 4.25 m/uL (3.80-5.40) 12/25/20 07:45 Hgb 12.4 gm/dL (11.4-16.0) 12/25/20 07:45 Hct 37.3 % (34.0-46.0) 12/25/20 07:45 MCV 87.6 fL (80.0-100.0) 12/25/20 07:45 MCH 29.1 pg (25.0-35.0) 12/25/20 07:45 MCHC 33.2 g/dL (31.0-37.0) 12/25/20 07:45 RDW 13.5 % (11.5-15.5) 12/25/20 07:45 Plt Count 236 k/uL (150-450) 12/25/20 07:45 MPV 8.0 12/25/20 07:45 Neutrophils % 74 % 12/25/20 07:45 Lymphocytes % 20 % 12/25/20 07:45 Monocytes % 4 % 12/25/20 07:45 Eosinophils % 0 % 12/25/20 07:45 Basophils % 0 % 12/25/20 07:45 Neutrophils # 3.8 k/uL (1.3-7.7) 12/25/20 07:45 Lymphocytes # 1.0 k/uL (1.0-4.8) 12/25/20 07:45 Monocytes # 0.2 k/uL (0-1.0) 12/25/20 07:45 Eosinophils # 0.0 k/uL (0-0.7) 12/25/20 07:45 Basophils # 0.0 k/uL (0-0.2) 12/25/20 07:45 Sodium 139 mmol/L (137-145) 12/25/20 07:45 Potassium 3.9 mmol/L (3.5-5.1) 12/25/20 07:45 Chloride 104 mmol/L (98-107) 12/25/20 07:45 Carbon Dioxide 24 mmol/L (22-30) 12/25/20 07:45 Anion Gap 11 mmol/L 12/25/20 07:45 BUN 14 mg/dL (7-17) 12/25/20 07:45 Creatinine 0.66 mg/dL (0.52-1.04) 12/25/20 07:45 Est GFR (CKD-EPI)AfAm >90 (>60 ml/min/1.73 sqM) 12/25/20 07:45 Est GFR (CKD-EPI)NonAf >90 (>60 ml/min/1.73 sqM) 12/25/20 07:45 Glucose 103 mg/dL (74-99) H 12/25/20 07:[address] Glu mg/dL 85 12/25/20 07:45 Hemoglobin A1c 4.6 % (4.0-6.0) 12/25/20 07:45 Calcium 9.9 mg/dL (8.4-10.2) 12/25/20 07:45 Total Bilirubin 0.8 mg/dL (0.2-1.3) 12/24/20 06:49 Conjugated Bilirubin 0.0 mg/dL (0.0-0.3) 12/24/20 06:49 Unconjugated Bilirubin 0.7 mg/dL (0.0-1.1) 12/24/20 06:49 Delta Bilirubin 0.1 mg/dL (0.0-0.2) 12/24/20 06:49 AST 20 U/L (14-36) 12/24/20 06:49 ALT 11 U/L (4-34) 12/24/20 06:49 Alkaline Phosphatase 60 U/L (38-126) 12/24/20 06:49 Total Protein 7.9 g/dL (6.3-8.2) 12/24/20 06:49 Albumin 4.9 g/dL (3.5-5.0) 12/24/20 06:49 Triglycerides 54 mg/dL (<150) 12/25/20 07:45 Cholesterol 153 mg/dL (<200) 12/25/20 07:45 LDL Cholesterol, Calc 103 mg/dL (0-99) H 12/25/20 07:45 HDL Cholesterol 39 mg/dL (40-60) L 12/25/20 07:45 TSH 1.750 mIU/L (0.465-4.680) 12/24/20 06:49 Urine Color Yellow 12/24/20 04:22 Urine Appearance Clear (Clear) 12/24/20 04:22 Urine pH 6.0 (5.0-8.0) 12/24/20 04:22 Ur Specific [place] 1.016 (1.001-1.035) 12/24/20 04:22 Urine Protein Trace (Negative) H 12/24/20 04:22 Urine Glucose (UA) Negative (Negative) 12/24/20 04:22 Urine Ketones 1+ (Negative) H 12/24/20 04:22 Urine Blood Trace (Negative) H 12/24/20 04:22 Urine Nitrite Negative (Negative) 12/24/20 04:22 Urine Bilirubin Negative (Negative) 12/24/20 04:22 Urine Urobilinogen 2.0 mg/dL (<2.0) 12/24/20 04:22 Ur Leukocyte Esterase Moderate (Negative) H 12/24/20 04:22 Urine RBC 2 /hpf (0-5) 12/24/20 04:22 Urine WBC 36 /hpf (0-5) H 12/24/20 04:22 Ur Squamous Epith Cells 2 /hpf (0-4) 12/24/20 04:22 Amorphous Sediment Rare /hpf (None) H 12/24/20 04:22 Urine Mucus Many /hpf (None) H 12/24/20 04:22 Urine HCG, Qual Not Detected (Not Detectd) 12/24/20 04:33 Urine Opiates Screen Not Detected (NotDetected) 12/24/20 04:22 Ur Oxycodone Screen Not Detected (NotDetected) 12/24/20 04:22 Urine Methadone Screen Not Detected (NotDetected) 12/24/20 04:22 Ur Propoxyphene Screen Not Detected (NotDetected) 12/24/20 04:22 Ur Barbiturates Screen Not Detected (NotDetected) 12/24/20 04:22 U Tricyclic Antidepress Not Detected (NotDetected) 12/24/20 04:22 Ur Phencyclidine Scrn Not Detected (NotDetected) 12/24/20 04:22 Ur Amphetamines Screen Not Detected (NotDetected) 12/24/20 04:22 U Methamphetamines Scrn Not Detected (NotDetected) 12/24/20 04:22 U Benzodiazepines Scrn Not Detected (NotDetected) 12/24/20 04:22 [place] <0.2 mmol/L 12/24/20 06:49 Urine Cocaine Screen Not Detected (NotDetected) 12/24/20 04:22 U Marijuana (THC) Screen Detected (NotDetected) H 12/24/20 04:22 Coronavirus (PCR) Not Detected (Not Detectd) 12/24/20 04:39 Vital Signs Temp 98.5 F 12/26/20 06:19 Pulse 71 12/26/20 06:19 Resp 15 12/26/20 06:19 BP 110/63 12/26/20 06:19 Pulse Ox 98 12/24/20 07:25 Patient Condition at Discharge: Stable Plan - Discharge Summary New Discharge Prescriptions: New ARIPiprazole [Abilify] 5 mg PO DAILY 30 Days tab [place] Carbonate 300 mg PO HS 30 Days cap Sulfamethox-Tmp 800-160Mg [Bactrim DS 800-160 mg] 1 each PO BID 5 Days tab Citalopram Hydrobromide [CeleXA] 40 mg PO DAILY 30 Days tab Nicotine 14Mg/24Hr Patch [Habitrol] 1 patch TRANSDERM DAILY 14 Days patch Pantoprazole [Protonix] 40 mg PO AC-BRKFST 30 Days tablet. Discontinued Citalopram Hydrobromide [CeleXA] 30 mg PO DAILY 30 Days tab ARIPiprazole [Abilify] 5 mg PO DAILY [place] Carbonate 300 mg PO HS Discharge Medication List ARIPiprazole [Abilify] 5 mg PO DAILY 30 Days tab 12/26/20 [Rx] Citalopram Hydrobromide [CeleXA] 40 mg PO DAILY 30 Days tab 12/26/20 [Rx] [place] Carbonate 300 mg PO HS 30 Days cap 12/26/20 [Rx] Nicotine 14Mg/24Hr Patch [Habitrol] 1 patch TRANSDERM DAILY 14 Days patch 12/26/20 [Rx] Pantoprazole [Protonix] 40 mg PO AC-BRKFST 30 Days tablet. 12/26/20 [Rx] Sulfamethox-Tmp 800-160Mg [Bactrim DS 800-160 mg] 1 each PO BID 5 Days tab 12/26/20 [Rx] Follow up Appointment(s)/Referral(s): [facility] [Outside] - 12/29/20 3:00 pm (12-29-20 @ 3:00 with Jet Shane by phone 01-01-21 @ 3:00 with JANICE Newman at [facility] office ) Nadja Goldberg MD [Primary Care Provider] - 1-2 days Patient Instructions/Handouts: How to Stop Smoking (DC), Depression (DC) Activity/Diet/Wound Care/Special Instructions: Activity and diet as tolerated. Avoid the use of street drugs and alcohol. Take all medications as prescribed. When you are in need of refills on your medications please contact your medical provider and/or outpatient psychiatrist to have this done. Please go to scheduled outpatient appointment for aftercare treatment. If symptoms return or become worse, call the crisis line at and/or go to the nearest emergency room for evaluation. Discharge Disposition: HOME SELF-CARE
== END 2020-12-26 13:05 | disposition home or self-care (01) | DRG 885 ==
LOC: EC 01:50 → 3MHU 06:06
PROVIDERS: ADMIT Psychiatry & Neurology Psychiatry; ATTEND Psychiatry & Neurology Psychiatry
DX: F33.9 Major depressive disorder, recurrent, unspecified (principal); E44.1 Mild protein-calorie malnutrition; N39.0 Urinary tract infection, site not specified; R45.851 Suicidal ideations; D72.810 Lymphocytopenia; E83.52 Hypercalcemia; F10.10 Alcohol abuse, uncomplicated; F12.10 Cannabis abuse, uncomplicated; F17.210 Nicotine dependence, cigarettes, uncomplicated; F29 Unspecified psychosis not due to a substance or known physiological condition; F41.9 Anxiety disorder, unspecified; F60.3 Borderline personality disorder; Z79.899 Other long term (current) drug therapy; Z81.8 Family history of other mental and behavioral disorders; Z87.440 Personal history of urinary (tract) infections; Z91.14 Patient's other noncompliance with medication regimen; Z20.822 Contact with and (suspected) exposure to COVID-19
CPT/HCPCS: 80048; 80053; 80061; 80178; 80306; 81001; 81025; 82075; 82248; 83036; 84443; 85025; 87635; 99285

== ENCOUNTER 2022-03-08 12:43 | Emergency (ER) | payer OTHER ==
[2022-03-08 12:57] VITALS: RESP 18; TEMP 98
[2022-03-08 13:52] LABS: Basophils % (A) 0 %; Eosinophils # (A) 0.1 k/uL (0-0.7); Eosinophils % (A) 1 %; HCT 38.4 % (34.0-46.0); HGB 12.4 gm/dL (11.4-16.0); Lymphocytes # (A) 1.1 k/uL (1.0-4.8); Lymphocytes % (A) 18 %; MCH 29.5 pg (25.0-35.0); MCHC 32.4 g/dL (31.0-37.0); Mean Platelet Volume 9.7; Monocytes # (A) 0.3 k/uL (0-1.0); Monocytes % (A) 5 %; Neutrophils # (A) 4.5 k/uL (1.3-7.7); Neutrophils % (A) 74 %; Platelet Count 178 k/uL (150-450); RBC 4.22 m/uL (3.80-5.40); RDW 12.9 % (11.5-15.5)
[2022-03-08 13:54] LABS: Appearance,Urine Clear (Clear); Bacteria,Urine Rare /hpf; Bilirubin,Urine Negative (Negative); Blood,Urine Moderate (Negative); Color,Urine Yellow; Glucose,Urine (UA) Negative (Negative); Ketones,Urine Negative (Negative); Leukocyte Esterase,Urine Negative (Negative); Mucus,Urine Rare /hpf; Nitrite,Urine Negative (Negative); Protein,Urine Negative (Negative); RBC,Urine <1 /hpf (0-5); Specific Gravity,Urine 1.015 (1.001-1.035); Squamous Epithelial Cell,Urine 1 /hpf (0-4); Urobilinogen,Urine <2.0 mg/dL (<2.0); WBC,Urine 1 /hpf (0-5)
[2022-03-08 14:00] LABS: Partial Thromboplastin Time 24.7 sec (22.0-30.0); Prothrombin Time 10.5 sec (9.0-12.0)
--- NOTE | 2022-03-08 14:12 | US ---
EXAMINATION TYPE: Transabdominal DATE OF EXAM: 03/08/2022 2:01 PM COMPARISON: NONE CLINICAL HISTORY: pain. bleeding with positive test. EXAM PERFORMED: Transabdominal (TA) EXAM MEASUREMENTS: GESTATIONAL AGE / DATING Physician Established: Not yet established Dates by LMP: LMP unknown patient believes she is 2 to 4 weeks . Dates by First Scan: No previous this is first scan Dates by Current Scan for: No IUP seen at this time MATERNAL ANATOMY Uterus: 8.3 x 4.4 x 4.8 cm Right Ovary: 3.1 x 2.0 x 3.6 cm Left Ovary: 3.5 x 1.6 x 3.1 cm Post CDS / Adnexa: wnl Presence of free fluid: none GESTATION / SURVEY No sign of an IUP, endometrium not thickened. Date of LMP: unknown Beta HcG (if available): Not available No evidence for at this time. IMPRESSION: 1. No changes to suggest intrauterine by ultrasound. Early should be considered. Correlation with beta-hCG and follow up exams can be performed. Other etiologies including ectopic pr egnancy are not excluded.
[2022-03-08 14:51] LABS: ALT 9 U/L (4-34); AST 15 U/L (14-36); African American GFR (CKD) >90 (>60 ml/min/1.73 sqM); Albumin 4.2 g/dL (3.5-5.0); Alkaline Phosphatase 40 U/L (38-126); Anion Gap 4 mmol/L; Blood Urea Nitrogen 6 mg/dL (7-17); Carbon Dioxide 29 mmol/L (22-30); Chloride 104 mmol/L (98-107); Glucose 89 mg/dL (74-99); Non-African American GFR(CKD) >90 (>60 ml/min/1.73 sqM); Potassium 4.1 mmol/L (3.5-5.1); Sodium 137 mmol/L (137-145); Total Bilirubin 0.1 mg/dL (0.2-1.3); Total Protein 6.4 g/dL (6.3-8.2)
[2022-03-08] MEDS ORDERED: Rhogam IMMUNE GLOBULIN 1,500 UNIT/1 ML IM ONE (15:34)
--- NOTE | 2022-03-08 16:11 | ED ---
Female Urogenital HPI - General Chief complaint: Vaginal Bleeding Stated complaint: Vaginal bleeding, 2-4 weeks preg Time Seen by Provider: 03/08/22 13:00 Source: patient, family Mode of arrival: ambulatory Limitations: no limitations - History of Present Illness Initial comments: 21-year-old female who is currently 2-3 weeks presents to the emergency room with vaginal bleeding. Reports that her last menstrual cycle was at the end of January. She began having some vaginal bleeding yesterday which was concerning to her as she did take of test that was positive. She went into the [facility] who sent her to [facility]. Laboratory studies were completed and she was told that her hormone was 853. No ultrasound was performed as they did not have ultrasound coverage. She does have a negative blood type however denies that she was given Rhogam. She was discharged home and told to follow-up with her primary care doctor. She saw Dr. Recinos for her previous and plans to stay with the [facility]. Her second was electively aborted last year. She admits to abnormal vaginal bleeding ever since her . No fevers. Denies concern for sexually transmitted infections. No abdominal trauma. 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 Sulfamethox-Tmp 800-160Mg [Bactrim 1 each PO BID 5 Days tab 12/26/20 DS 800-160 mg] Allergies Allergy/AdvReac Type Severity Reaction Status Date / Time Latex, Natural Rubber Allergy Unknown Verified 03/08/22 12:57 Review of Systems ROS Statement: Those systems with pertinent positive or pertinent negative responses have been documented in the HPI. ROS Other: All systems not noted in ROS Statement are negative. Past Medical History Past Medical History: No Reported History Additional Past Medical History / Comment(s): LIVER ENZYMES ELEV. ON PO AB FOR ECOLI IN URINE. CHOLECYSTITIS. History of Any Multi-Drug Resistant Organisms: None Reported Past Surgical History: Adenoidectomy, Cholecystectomy, Tonsillectomy Past Anesthesia/Blood Transfusion Reactions: No Reported Reaction Past Psychological History: Anxiety, Depression Smoking Status: Never smoker Past Alcohol Use History: Occasional Past Drug Use History: Marijuana - Past Family History Mother Family Medical History: No Reported History Father History Unknown: Yes Family Medical History: Unable to Obtain General Exam Limitations: no limitations General appearance: alert, in no apparent distress Head exam: Present: atraumatic, normocephalic, normal inspection Eye exam: Present: normal appearance, PERRL, EOMI. Absent: scleral icterus, conjunctival injection, periorbital swelling ENT exam: Present: normal exam, mucous membranes moist Neck exam: Present: normal inspection. Absent: tenderness, meningismus, lymphadenopathy Respiratory exam: Present: normal lung sounds bilaterally. Absent: respiratory distress, wheezes, rales, rhonchi, stridor Cardiovascular Exam: Present: regular rate, normal rhythm, normal heart sounds. Absent: systolic murmur, diastolic murmur, rubs, gallop, clicks GI/Abdominal exam: Present: soft, normal bowel sounds. Absent: distended, tenderness, guarding, rebound, rigid Extremities exam: Present: normal inspection, full ROM, normal capillary refill. Absent: tenderness, pedal edema, joint swelling, calf tenderness Back exam: Present: normal inspection Neurological exam: Present: alert, oriented X3, CN II-XII intact Psychiatric exam: Present: normal affect, normal mood Skin exam: Present: warm, dry, intact, normal color. Absent: rash Course Vital Signs 03/08/22 03/08/22 12:47 16:49 Temperature 98.0 F Pulse Rate 94 75 Respiratory 18 18 Rate Blood Pressure 109/76 102/50 O2 Sat by Pulse 100 99 Oximetry Medical Decision Making - Medical Decision Making Upon arrival patient was placed into room 32. History of physical exam is performed. Laboratory studies were obtained which demonstrates a beta hormone of 332. As this is swelling from the patient's previous value of 853 it is likely that the patient is undergoing a spontaneous miscarriage. Ultrasound is performed which demonstrates no intrauterine . The results of the laboratory studies and imaging are discussed the patient. Did discuss the possibility of of unknown location as well as incomplete miscarriage. Patient must follow with primary care or EMAIL MARKETING EXECUTIVE until hormone level is 0. Patient understood the importance of this. She will be given a prescription to have her laboratory studies drawn in 48 hours to ensure continued decline. These results will be sent to her primary care office as well as bladder obstet rics. Patient is to take Motrin Tylenol for pain. She is given Rhogam in the emergency room and due to her negative blood type. She is to return to the emergency room should she have any new or worsening symptoms patient understood this and was discharged home in stable condition - Lab Data Result diagrams: 03/08/22 13:40 03/08/22 13:40 Lab Results 03/08/22 03/08/22 03/08/22 Range/Units 13:40 13:40 13:40 WBC 6.0 (3.8-10.6) k/uL RBC 4.22 (3.80-5.40) m/uL Hgb 12.4 (11.4-16.0) gm/dL Hct 38.4 (34.0-46.0) % MCV 91.0 (80.0-100.0) fL MCH 29.5 (25.0-35.0) pg MCHC 32.4 (31.0-37.0) g/dL RDW 12.9 (11.5-15.5) % Plt Count 178 (150-450) k/uL MPV 9.7 Neutrophils % 74 % Lymphocytes % 18 % Monocytes % 5 % Eosinophils % 1 % Basophils % 0 % Neutrophils # 4.5 (1.3-7.7) k/uL Lymphocytes # 1.1 (1.0-4.8) k/uL Monocytes # 0.3 (0-1.0) k/uL Eosinophils # 0.1 (0-0.7) k/uL Basophils # 0.0 (0-0.2) k/uL PT 10.5 (9.0-12.0) sec INR 1.0 (<1.2) APTT 24.7 (22.0-30.0) sec Sodium (137-145) mmol/L Potassium (3.5-5.1) mmol/L Chloride (98-107) mmol/L Carbon Dioxide (22-30) mmol/L Anion Gap mmol/L BUN (7-17) mg/dL Creatinine (0.52-1.04) mg/dL Est GFR (CKD-EPI)AfAm (>60 ml/min/1.73 sqM) Est GFR (CKD-EPI)NonAf (>60 ml/min/1.73 sqM) Glucose (74-99) mg/dL Calcium (8.4-10.2) mg/dL Total Bilirubin (0.2-1.3) mg/dL AST (14-36) U/L ALT (4-34) U/L Alkaline Phosphatase (38-126) U/L Total Protein (6.3-8.2) g/dL Albumin (3.5-5.0) g/dL HCG, Quant mIU/mL Urine Color Yellow Urine Appearance Clear (Clear) Urine pH 7.0 (5.0-8.0) Ur Specific [place] 1.015 (1.001-1.035) Urine Protein Negative (Negative) Urine Glucose (UA) Negative (Negative) Urine Ketones Negative (Negative) Urine Blood Moderate H (Negative) Urine Nitrite Negative (Negative) Urine Bilirubin Negative (Negative) Urine Urobilinogen <2.0 (<2.0) mg/dL Ur Leukocyte Esterase Negative (Negative) Urine RBC <1 (0-5) /hpf Urine WBC 1 (0-5) /hpf Ur Squamous Epith Cells 1 (0-4) /hpf Urine Bacteria Rare H (None) /hpf Urine Mucus Rare H (None) /hpf Blood Type Blood Type Recheck Bld Type Recheck Status Antibody Screen 03/08/22 03/08/22 03/08/22 Range/Units 13:40 13:40 13:40 WBC (3.8-10.6) k/uL RBC (3.80-5.40) m/uL Hgb (11.4-16.0) gm/dL Hct (34.0-46.0) % MCV (80.0-100.0) fL MCH (25.0-35.0) pg MCHC (31.0-37.0) g/dL RDW (11.5-15.5) % Plt Count (150-450) k/uL MPV Neutrophils % % Lymphocytes % % Monocytes % % Eosinophils % % Basophils % % Neutrophils # (1.3-7.7) k/uL Lymphocytes # (1.0-4.8) k/uL Monocytes # (0-1.0) k/uL Eosinophils # (0-0.7) k/uL Basophils # (0-0.2) k/uL PT (9.0-12.0) sec INR (<1.2) APTT (22.0-30.0) sec Sodium 137 (137-145) mmol/L Potassium 4.1 (3.5-5.1) mmol/L Chloride 104 (98-107) mmol/L Carbon Dioxide 29 (22-30) mmol/L Anion Gap 4 mmol/L BUN 6 L (7-17) mg/dL Creatinine 0.67 (0.52-1.04) mg/dL Est GFR (CKD-EPI)AfAm >90 (>60 ml/min/1.73 sqM) Est GFR (CKD-EPI)NonAf >90 (>60 ml/min/1.73 sqM) Glucose 89 (74-99) mg/dL Calcium 9.0 (8.4-10.2) mg/dL Total Bilirubin 0.1 L (0.2-1.3) mg/dL AST 15 (14-36) U/L ALT 9 (4-34) U/L Alkaline Phosphatase 40 (38-126) U/L Total Protein 6.4 (6.3-8.2) g/dL Albumin 4.2 (3.5-5.0) g/dL HCG, Quant 332.0 mIU/mL Urine Color Urine Appearance (Clear) Urine pH (5.0-8.0) Ur Specific [place] (1.001-1.035) Urine Protein (Negative) Urine Glucose (UA) (Negative) Urine Ketones (Negative) Urine Blood (Negative) Urine Nitrite (Negative) Urine Bilirubin (Negative) Urine Urobilinogen (<2.0) mg/dL Ur Leukocyte Esterase (Negative) Urine RBC (0-5) /hpf Urine WBC (0-5) /hpf Ur Squamous Epith Cells (0-4) /hpf Urine Bacteria (None) /hpf Urine Mucus (None) /hpf Blood Type A Negative Blood Type Recheck A Neg Bld Type Recheck Status No Antibody Screen NEGATIVE Disposition Clinical Impression: Incomplete miscarriage, Rh negative status during Disposition: HOME SELF-CARE Condition: Stable Instructions (If sedation given, give patient instructions): Rh (By injection), Miscarriage (ED) Additional Instructions: Please return in 48 hours to the outpatient lab to have your lab results drawn. These results will be sent to Dr. Saez and [facility]. You must follow-up until your level reaches 0. Do not attempt to get until hormone is back to 0. Return for any new or worsening symptoms Is patient prescribed a controlled substance at d/c from ED?: No Referrals: Nadja Goldberg MD [Primary Care Provider] - 1-2 days Elis Yeager DO [Doctor of Osteopathic Medicine] - 1-2 days Time of Disposition: 16:11
[2022-03-08 16:50] VITALS: BP 102/50; PULSE 75
== END 2022-03-08 17:02 | disposition home or self-care (01) ==
LOC: EC 12:43
DX: O03.4 Incomplete spontaneous abortion without complication (principal); Z67.91 Unspecified blood type, Rh negative; F41.9 Anxiety disorder, unspecified; F32.A Depression, unspecified; F12.90 Cannabis use, unspecified, uncomplicated; Z91.040 Latex allergy status; Z79.899 Other long term (current) drug therapy
CPT/HCPCS: 36415; 86900; 86901; 80053; 85025; 85610; 85730; 86850; 81001; 84702; 76801; 99284; 96372; J2790